=== PATIENT | female | born 1985 | race Caucasian/White ===

== ENCOUNTER 2022-01-17 12:25 | Outpatient (CLI) | payer BC, SELFPAY ==
[2022-01-17 13:00] LABS: Basophils Percent Auto 0.6 % (0.2-1.2); Eosinophils Absolute Auto 0.2 K/mm3 (0-0.3); Eosinophils Percent Auto 3.3 % (0-4.4); Hematocrit 39.7 % (37.0-47.0); Hemoglobin 13.1 g/dL (12.0-15.0); Immature Granulocyte Absolute 0.02 K/mm3 (0.00-0.031); Immature Granulocyte Percent A 0.3 % (0-0.5); Lymphocytes Absolute Auto 1.26 K/mm3 (0.9-3.2); Lymphocytes Percent Auto 18.1 % (18.3-44.2); Mean Corpuscular Hemoglobin 30.1 pg (26-34); Mean Corpuscular Volume 91.3 fl (80-100); Mean Platelet Volume 10.1 fl (7.4-10.4); Monocytes Absolute Auto 0.5 K/mm3 (0.1-0.6); Monocytes Percent Auto 7.6 % (2.6-8.5); Neutrophils Absolute Auto 4.9 K/mm3 (1.3-6.7); Neutrophils Percent Auto 70.1 % (45.5-73.1); Platelet Count Result 207 k/mm3 (150-375); Red Blood Count 4.35 M/mm3 (4.2-5.4); Red Cell Distribution Width 13.1 % (11.5-14.5)
[2022-01-17 13:32] LABS: Vitamin D 25 Hydroxy 23.8 ng/mL
[2022-01-17 13:46] LABS: Hepatitis B Surface Antigen Negative (Negative); Rubella IgG Antibody 19.6 IU/ML
[2022-01-17 13:48] LABS: HIV 1/2 Ab P24 Ag Result Negative (Negative)
[2022-01-17 14:02] LABS: Hepatitis C Virus Antibody Negative (Negative)
[2022-01-20 18:01] LABS: Rapid Plasma Reagin Non-Reactive (NonReactive)
[2022-01-21 11:42] LABS: Hematocrit 40.2 % (35.0-45.0); Hemoglobin 12.8 g/dL (11.7-15.5); MCV 94.1 fL (80.0-100.0); RDW 13.3 % (11.0-15.0); Red Blood Cell Count 4.27 Mill/uL (3.80-5.10)
[2022-01-28 17:12] LABS: CF Result NEGATIVE (NEGATIVE)
== END 2022-01-17 12:26 | disposition home or self-care (01) ==
LOC: ANHLAB 12:27
PROVIDERS: Visit Provider Student in an Organized Health Care Education/Training Program
DX: Z34.90 Encounter for supervision of normal pregnancy, unspecified, unspecified trimester (principal); Z3A.00 Weeks of gestation of pregnancy not specified
CPT/HCPCS: 36415; 81220; 81243; 82306; 83021; 84443; 85025; 86592; 86703; 86762; 86787; 86803; 86850; 86900; 86901; 87086; 87340; G0432

== ENCOUNTER 2022-04-11 11:19 | Outpatient (CLI) | payer BC, SELFPAY ==
[2022-04-11 12:32] LABS: Basophils Percent Auto 0.3 % (0.2-1.2); Eosinophils Absolute Auto 0.1 K/mm3 (0-0.3); Eosinophils Percent Auto 1.2 % (0-4.4); Hematocrit 35.6 % (37.0-47.0); Hemoglobin 11.7 g/dL (12.0-15.0); Immature Granulocyte Absolute 0.04 K/mm3 (0.00-0.031); Immature Granulocyte Percent A 0.5 % (0-0.5); Lymphocytes Absolute Auto 1.47 K/mm3 (0.9-3.2); Lymphocytes Percent Auto 16.6 % (18.3-44.2); Mean Corpuscular HGB Conc 32.9 g/dl (32-36); Mean Corpuscular Hemoglobin 29.9 pg (26-34); Mean Platelet Volume 10.3 fl (7.4-10.4); Monocytes Absolute Auto 0.5 K/mm3 (0.1-0.6); Monocytes Percent Auto 5.7 % (2.6-8.5); Neutrophils Absolute Auto 6.7 K/mm3 (1.3-6.7); Neutrophils Percent Auto 75.7 % (45.5-73.1); Platelet Count Result 183 k/mm3 (150-375); Red Blood Count 3.91 M/mm3 (4.2-5.4); Red Cell Distribution Width 14.5 % (11.5-14.5); White Blood Count 8.9 K/mm3 (4.5-10.0)
[2022-04-11 13:00] LABS: Glucose 1 Hour PP 50gm Dose 104 mg/dL
== END 2022-04-11 11:20 | disposition home or self-care (01) ==
LOC: ANHLAB 11:20
PROVIDERS: Visit Provider Student in an Organized Health Care Education/Training Program
DX: Z34.02 Encounter for supervision of normal first pregnancy, second trimester (principal); Z3A.00 Weeks of gestation of pregnancy not specified
CPT/HCPCS: 36415; 82947; 85025

== ENCOUNTER 2022-06-05 11:39 | Outpatient (CLI) | payer BC, SELFPAY ==
[2022-06-05 12:54] LABS: Basophils Percent Auto 0.3 % (0.2-1.2); Eosinophils Absolute Auto 0.1 K/mm3 (0-0.3); Eosinophils Percent Auto 1.1 % (0-4.4); Hematocrit 36.3 % (37.0-47.0); Hemoglobin 11.6 g/dL (12.0-15.0); Immature Granulocyte Absolute 0.03 K/mm3 (0.00-0.031); Immature Granulocyte Percent A 0.4 % (0-0.5); Lymphocytes Absolute Auto 1.14 K/mm3 (0.9-3.2); Lymphocytes Percent Auto 14.5 % (18.3-44.2); Mean Corpuscular Hemoglobin 28.6 pg (26-34); Mean Corpuscular Volume 89.4 fl (80-100); Mean Platelet Volume 10.8 fl (7.4-10.4); Monocytes Absolute Auto 0.5 K/mm3 (0.1-0.6); Neutrophils Absolute Auto 6.1 K/mm3 (1.3-6.7); Neutrophils Percent Auto 77.7 % (45.5-73.1); Platelet Count Result 171 k/mm3 (150-375); Red Blood Count 4.06 M/mm3 (4.2-5.4); Red Cell Distribution Width 14.6 % (11.5-14.5); White Blood Count 7.9 K/mm3 (4.5-10.0)
[2022-06-05 13:46] LABS: HIV 1/2 Ab P24 Ag Result Negative (Negative)
[2022-06-05 13:58] LABS: Rapid Plasma Reagin Non-Reactive (NonReactive)
== END 2022-06-05 11:40 | disposition home or self-care (01) ==
LOC: ANHLAB 11:41
PROVIDERS: Visit Provider Student in an Organized Health Care Education/Training Program
DX: Z34.03 Encounter for supervision of normal first pregnancy, third trimester (principal); Z3A.00 Weeks of gestation of pregnancy not specified
CPT/HCPCS: 36415; 85025; 86592; 86703; G0432

== ENCOUNTER 2022-07-25 10:27 | Outpatient (RCR) | payer BC, SELFPAY ==
[2022-05-08 13:06] VITALS: BP 115/71; PULSE 98
[2022-06-20 16:18] VITALS: BP 125/72; PULSE 95
[2022-07-08 08:08] VITALS: BP 123/77; PULSE 88
--- NOTE | ~2022-07-25 | US_ITS ---
EXAMINATION: US OB limited DATE: 07/25/2022 12:09 INDICATION: Amniotic fluid index assessment, term TECHNIQUE: Real-time ultrasound of the pelvis was performed. The interpreting radiologist was not pre sent for the study. COMPARISON: None. FINDINGS: There is a single living fetus in vertex presentation. The placenta is anterior. card iac activity and movement are noted. heart rate is 151 beats per minute (bpm). The amniot ic fluid index is 10.4 cm which is normal (normal range: 7.1 cm to 21.4 cm). IMPRESSION: 1. Single living fetus in vertex presentation. 2. Normal amniotic fluid index. Reviewed, dictated and finalized at location A.
--- NOTE | 2022-07-25 12:24 | PC.NURSE ---
called Ken Childs CNM and reported BP, Reactive NST, LAb result. discharge order received
[2022-07-25 12:27] VITALS: BP 136/79
== END 2022-08-06 23:59 | disposition home or self-care (01) ==
LOC: ANHOBOP 10:27
PROVIDERS: Visit Provider Student in an Organized Health Care Education/Training Program
DX: O36.8330 Maternal care for abnormalities of the fetal heart rate or rhythm, third trimester, not applicable or unspecified (principal); Z3A.28 28 weeks gestation of pregnancy; Z3A.40 40 weeks gestation of pregnancy
CPT/HCPCS: 59025; 76815

== ENCOUNTER 2022-07-29 18:52 | Inpatient (IN) | payer BC, SELFPAY ==
[2022-07-29] VITALS (10 sets, daily range): BP systolic 116–131; BP diastolic 54–76; PULSE 88–103; TEMP 36.2; BMI 46.6
--- NOTE | 2022-07-29 20:23 | LDADM ---
This patient, Karmen Schmidt, was admitted to Labor/Delivery/Recovery 108 on 07/29/22 at 18:52. Plans for labor, pain management and were discussed with patient. Patient/family oriented to hospital policies and general routines including ID bracelet, bed and alarms, visiting hours, pain management, procedures, bathroom and other care routines, personal items, smoking policy, room service/diet and guest tray routines, security routines, and visiting hours. Patient/Family are encouraged to report perceived risks to care and to ask questions if they do not understand what they are told or what they should do. See OBIX for further documentation.
[2022-07-29] MEDS: DINOPROSTONE 10 MG VAG INSERT VAGINAL (20:56)
[2022-07-29 21:05] LABS: Basophils Percent Auto 0.3 % (0.2-1.2); Eosinophils Absolute Auto 0.1 K/mm3 (0-0.3); Eosinophils Percent Auto 0.8 % (0-4.4); Hematocrit 37.6 % (37.0-47.0); Hemoglobin 12.3 g/dL (12.0-15.0); Immature Granulocyte Absolute 0.03 K/mm3 (0.00-0.031); Immature Granulocyte Percent A 0.5 % (0-0.5); Lymphocytes Absolute Auto 1.09 K/mm3 (0.9-3.2); Lymphocytes Percent Auto 16.4 % (18.3-44.2); Mean Corpuscular HGB Conc 32.7 g/dl (32-36); Mean Corpuscular Hemoglobin 28.9 pg (26-34); Mean Corpuscular Volume 88.3 fl (80-100); Mean Platelet Volume 10.5 fl (7.4-10.4); Monocytes Absolute Auto 0.5 K/mm3 (0.1-0.6); Monocytes Percent Auto 7.7 % (2.6-8.5); Neutrophils Percent Auto 74.3 % (45.5-73.1); Platelet Count Result 176 k/mm3 (150-375); Red Blood Count 4.26 M/mm3 (4.2-5.4); Red Cell Distribution Width 15.3 % (11.5-14.5); White Blood Count 6.7 K/mm3 (4.5-10.0)
[2022-07-30] VITALS (100 sets, daily range): BP systolic 96–136; BP diastolic 54–92; PULSE 77–116; TEMP 36.1–36.7; O2SAT 88–100
--- NOTE | 2022-07-30 06:28 | WPDANESEPP ---
Anes - Eval Pre Procedure Procedure: labor epidural Date/Time: 07/30/22 06:28 Surgeon: daniel Preop Diagnosis: pain during labor Pre Op Diagnosis: IOL Patient Data Age: 37 Gender: F Height: 1.65 m Weight: 127.25 kg Last Vital Signs Temp 36.3 C L 07/30/22 03:09 Pulse 96 07/30/22 04:01 BP 126/78 07/30/22 04:01 O2 Del Method Room Air 07/29/22 20:22 Allergies Allergy/AdvReac Type Severity Reaction Status Date / Time No Known Allergies Allergy Verified 07/18/22 15:25 Home Medications Medication Instructions Recorded Confirmed Type prenat.vits,christie,[id number] 1 tablet PO DAILY 01/03/22 History aspirin 81 mg tablet 81 mg PO DAILY 06/24/22 06/24/22 History cholecalciferol (vitamin D3) 50 2,000 unit 06/24/22 History mcg (2,000 unit) tablet (Vitamin D3) Laboratory Tests 07/29/22 07/29/22 07/29/22 20:46 20:46 20:46 WBC 6.7 K/mm3 K/mm3 (4.5-10.0) RBC 4.26 M/mm3 M/mm3 (4.2-5.4) Hgb 12.3 g/dL g/dL (12.0-15.0) Hct 37.6 % % (37.0-47.0) MCV 88.3 fl fl (80-100) MCH 28.9 pg pg (26-34) MCHC 32.7 g/dl g/dl (32-36) RDW 15.3 % H % (11.5-14.5) Plt Count 176 k/mm3 k/mm3 (150-375) MPV 10.5 fl H fl (7.4-10.4) Immature Gran % (Auto) 0.5 % % (0-0.5) Neut % (Auto) 74.3 % H % (45.5-73.1) Lymph % (Auto) 16.4 % L % (18.3-44.2) Otero % (Auto) 7.7 % % (2.6-8.5) Eos % (Auto) 0.8 % % (0-4.4) Baso % (Auto) 0.3 % % (0.2-1.2) Lymph # (Auto) 1.09 K/mm3 K/mm3 (0.9-3.2) Otero # (Auto) 0.5 K/mm3 K/mm3 (0.1-0.6) Eos # (Auto) 0.1 K/mm3 K/mm3 (0-0.3) Baso # (Auto) 0.0 K/mm3 K/mm3 (0.0-0.1) Abs Immat Gran (auto) 0.03 K/mm3 K/mm3 (0.00-0.031) Absolute Neuts (auto) 5.0 K/mm3 K/mm3 (1.3-6.7) Absolute Nucleated RBC 0.0 K/mm3 K/mm3 (0.0-0.012) Nucleated RBC % 0.0 % % (0.0-0.2) RPR Pending Blood Type A Positive Antibody Screen Negative Patient hx anesthesia problems: none Family hx anesthesia problems: none Results Review: All pre-operative results and documents have been reviewed as part of the pre-operative evaluation. [facility] Past Medical History Medical History (Updated 07/30/22 @ 06:29 by Jaylene Pelletier CRNA) IUP (intrauterine ), incidental Morbid obesity with BMI of 45.0-49.9, adult Family History Family History Grandparent Cancer Grandparent Diabetes mellitus Heart disease Hypertension Grandparent Breast cancer Social History Social History Smoking status: Never smoker Second hand tobacco smoke exposure: No Alcohol intake: unknown Substance use: never Gender identity (if verbalized by the patient): Female Spiritual care concerns: No Exam Day of Procedure 07/30/22 06:28
[2022-07-30] MEDS: miSOPROStol 50 MCG TABLET PO (10:07)
[2022-07-30] MEDS: AMPICILLIN 1 GM/NS 50 ML 1 GM/50 ML BAG IVPB ×3 (12:08→20:53)
[2022-07-30] MEDS: LACTATED RINGERS 1,000 ML 125 ML IV CONT ×2 (15:03→19:11)
[2022-07-30] MEDS: OXYTOCIN 30 UNITS/NS 500 ML 30 UNITS/500 ML BAG 6 UNITS IV CONT (15:03)
[2022-07-30 15:21] LABS: HIV 1/2 Ab P24 Ag Result Negative (Negative)
--- NOTE | 2022-07-30 15:30 | WPDHPUPDATE1 ---
History and Physical Update Update Date/Time: 07/31/22 02:27 History and Physical has been reviewed, including an updated exam of the patient. There are NO changes in the patient's condition. Risks, benefits, and alternatives have been discussed and questions answered. Patient agrees to proceed with procedure.
[2022-07-30 15:36] LABS: Rapid Plasma Reagin Non-Reactive (NonReactive)
--- NOTE | 2022-07-30 15:50 | PM.IMHP ---
H&P: HPI History of Present Illness Date/Time: 07/30/22 15:50 Chief Complaint: Induction of labor Narrative: Patient is a LMP 10/18/21 currently 40w5d gestation with MAXIMO 07/25/22 who presented to L&D on the evening of 07/29/22 at 40w4d gestation for scheduled induction of labor. Patient is dated by LMP c/w outside [place]. In general, patient doing well. Reports occasional contractions. Denies any vaginal bleeding or leakage of fluid. Reports good movement. Review of Systems Review of Systems: All systems reviewed & are unremarkable except as noted in HPI and below Constitutional: Constitutional: Reports as per HPI and Reports no additional constitutional complaints Eyes: Eyes: Reports as per HPI and Reports no additional eye complaints ENT: Reports system reviewed and no additional complaints, except as documented and Reports as per HPI Cardiovascular: Cardiovascular: Reports as per HPI and Reports no additional cardiovascular complaints Respiratory: Respiratory: Reports as per HPI and Reports no additional respiratory complaints Gastrointestinal: Gastrointestinal: Reports as per HPI and Reports no additional gastrointestinal complaints Genitourinary: Genitourinary: Reports no additional female genitourinary complaints and Reports as per HPI Musculoskeletal: Musculoskeletal: Reports no additional musculoskeletal complaints and Reports as per HPI Integumentary/Breasts: Skin/Breast: Reports system reviewed and no additional complaints, except as docu and Reports as per HPI Neurologic: Reports system reviewed and no additional complaints, except as documented and Reports as per HPI Psychiatric: Psychiatric: Reports no additional psychiatric complaints and Reports as per HPI Endocrine: Endocrine: Reports no additional endocrine complaints and Reports as per HPI Hematologic/Lymphatic: Hematologic/Lymphatic: Reports no additional hematologic/lymphatic complaints and Reports as per HPI Allergic/Immunologic: Allergic/Immunologic: Reports no additional allergic/immunologic complaints and Reports as per HPI PMFSH Past Medical History Medical History IUP (intrauterine ), incidental Morbid obesity with BMI of 45.0-49.9, adult Family History Family History Grandparent Cancer Grandparent Diabetes mellitus Heart disease Hypertension Grandparent Breast cancer Social History Social History Smoking status: Never smoker Second hand tobacco smoke exposure: No Alcohol intake: unknown Substance use: never Gender identity (if verbalized by the patient): Female Spiritual care concerns: No Meds Home Medications and Allergies Home Medications Medication Instructions Recorded Confirmed Type prenat.vits,christie,kzo-bpgb-mpizg 1 tablet PO DAILY 01/03/22 History aspirin 81 mg tablet 81 mg PO DAILY 06/24/22 06/24/22 History cholecalciferol (vitamin D3) 50 2,000 unit 06/24/22 History mcg (2,000 unit) tablet (Vitamin D3) Allergies Allergy/AdvReac Type Severity Reaction Status Date / Time No Known Allergies Allergy Verified 07/18/22 15:25 Vital Signs Vital Signs - 24 hr 07/29/22 20:22 07/29/22 20:55 07/29/22 20:56 Temperature 36.2 C L Pulse Rate 97 Blood Pressure 131/75 Oxygen Delivery Room Air 07/29/22 21:00 07/29/22 21:15 07/29/22 21:31 Temperature Pulse Rate 103 H 92 92 Blood Pressure 120/76 124/62 123/54 L Oxygen Delivery 07/29/22 21:45 07/29/22 22:00 07/29/22 22:15 Temperature Pulse Rate 96 91 90 Blood Pressure 124/68 119/65 116/73 Oxygen Delivery 07/29/22 22:31 07/29/22 22:46 07/30/22 03:09 Temperature 36.3 C L Pulse Rate 92 88 Blood Pressure 125/68 118/64 Oxygen Delivery 07/30/22 03:12 07/30/22 03:31 07/30/22 04:01 Temperature Pulse Rate 83 85 96 Bl
--- NOTE | 2022-07-30 18:47 | P.PNOB_ITS ---
Pain Control Date/time seen: 07/30/22 18:47 Patient doing well. Reports feeling contractions. SVE /-2. AROM performed, clear fluid noted. EFM category 1. [place] shows contractions q2 mins. Continue pitocin.
[2022-07-30] MEDS: SODIUM CHLORIDE 0.9% IV 300 ML 600 ML I-UTERINE (22:09)
[2022-07-31] VITALS (52 sets, daily range): BP systolic 95–133; BP diastolic 46–95; PULSE 84–186; RESP 18; TEMP 36.7–37.2; O2SAT 81–100
[2022-07-31] MEDS: AMPICILLIN 1 GM/NS 50 ML 1 GM/50 ML BAG IVPB (00:10)
[2022-07-31] MEDS: LACTATED RINGERS 1,000 ML 125 ML IV CONT (00:10)
[2022-07-31] MEDS: OXYTOCIN 30 UNITS/NS 500 ML 30 UNITS/500 ML BAG 125 UNITS IV CONT (02:27)
--- NOTE | 2022-07-31 02:28 | PM.OBPRVD ---
OB - Delivery Note Procedure Delivery date: 07/31/22 Procedure: Patient is a 37-year-old now who presented to labor and delivery on the evening of 07/29/2022 at 40 weeks 4 days gestation for scheduled induction of labor. Initial cervical exam was closed. Induction of labor was started with Cervidil. Cervidil was placed and remained in place for approximately 12 hours. After removal, cervical exam was approximately fingertip dilated. Patient received Cytotec x1 dose. Patient progressed to approximately 2 cm dilated. Pitocin was then started for labor augmentation and continuously titrated throughout the remainder of the morning and afternoon. At 6:43 p.m., artificial rupture of membranes was performed. Clear amniotic fluid was noted. Patient became uncomfortable and requested an epidural for pain management which was placed without difficulty. Patient continued to make progressive cervical change. Late and variable decelerations were noted on EFM. An IUPC was placed for enhanced monitoring and an amnioinfusion was also started. tracing improved. Patient continued to progress and was found to be fully dilated at 12:52 a.m. Patient was encouraged to push and found to be pushing well. She was prepped and draped for delivery. At 1:41 a.m., patient delivered head atraumatically and without difficulty in [place] presentation. A nuchal cord x1 was noted and reduced. With subsequent push, the 's neck, shoulders, and rest of body delivered without difficulty. Terminal meconium as well as a large amount of meconium-stained fluid was noted immediately following delivery of infant. was a bit floppy and placed on maternal abdomen where care was assumed by awaiting nursing staff. 's nose and mouth were suctioned with bulb suction. Delayed cord clamping was performed for approximately 30 seconds. Cord was clamped and cut. A segment of cord was collected for cord gases. Cord blood was collected. The placenta was delivered spontaneously and intact. Uterine fundus was noted to be firm with massage. On inspection, a second-degree perineal laceration was noted. This laceration was repaired with 2-0 Vicryl in the usual fashion. Excellent hemostasis was noted. Estimated blood loss for entire delivery was 250 cc. The infant was live born male infant, Apgars 8 and 9, weighing 8 lbs. 8 oz. Both mother and baby doing well at end of delivery. Events: Elective Induction of Labor Intrapartal Events: Decelerations Induction method: Per Cervidil Protocol Delivery augmentation: Rupture of Membranes and Pitocin Delivery monitor: External FHT, External Uterine and Internal Uterine Route of delivery: Laceration Description: Perineal - 2nd Degree Delivery repair: vicryl (2-0) Specimen: Yes (placenta and cord, cord blood, and cord gases) Quantitative Blood Loss (ml): 250 Anesthesia type: Epidural Disposition: Floor Complications: No immediate complications [place] Baby Date of : 07/31/22 Time of : 01:41 Weeks of gestation at delivery: 40 (40.6) gender: Male Weight (pounds): 8 Weight (ounces): 8 presentation: vertex position: Left Occiput Anterior Placenta delivery description: Spontaneous Cord Vessel Description: 3 Vessels, Nuchal Cord (x1) and Delayed Cord Clamping (x30s) score one minute: 8 score five minutes: 9 AMG Delivery Billing Delivery Delivery: Delivery Charge
[2022-07-31] MEDS: IBUPROFEN 600 MG TABLET PO ×3 (03:18→19:01)
[2022-07-31] MEDS: HYDROcodone/acetaminophen (*CRX) 10-325 MG TABLET 1 TAB PO ×4 (03:55→19:01)
[2022-07-31] MEDS: WITCH HAZEL 40 PADS 1 PAD TOPICAL (05:04)
[2022-07-31] MEDS: BENZOCAINE 20% AER SPR (*SP) 56 GM CAN 1 SPRAY TOPICAL (05:05)
[2022-07-31] MEDS: DOCUSATE SODIUM 100 MG CAPSULE PO ×2 (09:57→17:58)
[2022-07-31] MEDS: MULTIVIT/MIN/PREN/FOL AC/IRON TABLET 1 TAB PO (09:57)
--- NOTE | 2022-07-31 10:56 | PC.NURSE ---
[id number] Introductions were made, then consulted with patient to assess needs related to . Mother led the conversation with her?plans to feed?her infant and the?experience so far. Resources provided for inpatient and outpatient services using a resource guide and mom/baby guide. Mother voiced understanding of information and requests assistance. Consulted with patient to assess needs related to . Mother works well with her and has infant latched to the left breast using cross cradle positioning and states there's no pain. Reviewed working with , breast, nipples and how to protect the nipples with an optimal deep latch, good positioning, and good hand washing. Encouraged understanding the benefits of skin to skin, responding to feeding cues, frequencies of feeding 8-12 times in 24 hours (approximately 2-3 hours), duration of feedings, hand expression, milk production, intake/output feeding sheet and signs of adequate intake encouraging swallowing at the breast. detached and was placed skin to skin on mother's chest. demonstrated feeding cues and was offered the right breast in football position. Reviewed positioning and alignment, supporting breast, off-centered (asymmetrical latch) and leading with the chin with big open wide gape. Several attempts were made to latch infant to the breast. Mother's nipple is large for infants mouth, firm and regresses somewhat, however, it is everted initially. After several attempts infant opens wider with each attempt and latches with a big, wide, open mouth. Mother denies any discomfort, rocking motion is visualized along with hearing swallowing sounds and the infants jaw dropping lower with each sound. latched optimally to the right breast in football position. Education given to mother of how to visualize suck/swallow ratios and listening for drinking at the breast. was able to maintain latch without discomfort to mother. Mother also plans to syringe feed her the 1 ml of colostrum that was pumped less than 4 hours ago. Nipple care reviewed with optimal latch and good positioning. Discussed with mother what to look for after breastfeeds as the nipple is to not be misshaped. Resources used to facilitate learning were used from the mom and baby guide. Reviewed pumping care, usage, there's to be no pain, milk production, caution for oversupply, prevention and treatment of engorgement. Mother voiced understanding of the education shared, calling for assistance if the infant does not latch or if there is discomfort with . Reported to the primary RN.
[2022-08-01] VITALS: BP 139/85; PULSE 93; RESP 18; TEMP 36.6
[2022-08-01 05:32] LABS: Hematocrit 30.8 % (37.0-47.0)
[2022-08-01 08:00] VITALS: PULSE 103; RESP 16; O2SAT 100
[2022-08-01] MEDS: IBUPROFEN 600 MG TABLET PO ×2 (08:15→19:38)
[2022-08-01] MEDS: DOCUSATE SODIUM 100 MG CAPSULE PO ×2 (08:16→17:34)
[2022-08-01] MEDS: MULTIVIT/MIN/PREN/FOL AC/IRON TABLET 1 TAB PO (08:16)
[2022-08-01 08:20] VITALS: BP 140/88; PULSE 103; RESP 16; TEMP 37; O2SAT 100
--- NOTE | 2022-08-01 08:59 | WPDANLDPN2 ---
Anes-Prog Note L&D Date/Time: 08/01/22 08:59 Comfortable throughout: labor and delivery Neuraxial method: epidural Epidural/Spinal procedure site: clean & non-tender Neuro status: Neuro function grossly intact. Cardiovascular status: normal Respiratory status: normal Airway patency: baseline Mental status: baseline Post-Op hydration status: normal Vital Signs: Last Vital Signs Temp 36.6 C 08/01/22 00:00 Pulse 93 08/01/22 00:00 Resp 18 08/01/22 00:00 BP 139/85 08/01/22 00:00 Pulse Ox 99 07/31/22 16:09 O2 Del Method Room Air 08/01/22 00:00 Pain score (VAS): 1/10 I/O: Intake & Output 07/31/22 08/01/22 08/01/22 23:59 07:59 15:59 Intake Total 240 Balance 240 Post-procedural complaints: none Patient feedback: Patient satisfied with anesthetic care.
--- NOTE | 2022-08-01 12:07 | PM.OBPNVD ---
OB - PN: Subj Subjective Date/time seen: 08/01/22 12:07 Patient doing well. Mild cramping and generalized soreness improved with medication. Minimal lochia. Ambulating without difficulty. Voiding well. OB - PN: Obj Data Labs CBC & Chem 7: 08/01/22 05:17 Labs: Laboratory Results - last 24 hr 08/01/22 05:17 Hgb 10.0 L Hct 30.8 L OB - PN A/P Assessment and Plan (1) Normal spontaneous vaginal delivery: Code(s): O80 - Encounter for full-term uncomplicated delivery Status: Acute Assessment and Plan: PPD#1 doing well continue routine care few mild elevated BP measurements noted, per RN, at least 1-2 measurements were while pt in pain, pt currently asymptomatic will obtain labs to ensure WNL anticipate dc home tomorrow Time Spent With Patient Time: Total time spent is greater than 50% in coordination of care (as documented) at patient's floor/unit and/or counseling patient: Review of Systems Review of Systems: All systems reviewed & are unremarkable except as noted in HPI and below Exam Const: General: cooperative, comfortable and no acute distress Nutritional Appearance: obese GI: Inspection: non-distended GI Palp: Yes Soft to palpation and No Tenderness to palpation present (GI) Other: fundus firm below umbilicus Extrem: Right lower extremity: no edema Left lower extremity: no edema Other: no calf tenderness
[2022-08-01] MEDS: ACETAMINOPHEN 325 MG TABLET 650 MG PO (13:10)
[2022-08-01 13:17] LABS: Basophils Absolute Auto 0.1 K/mm3 (0.0-0.1); Basophils Percent Auto 0.6 % (0.2-1.2); Eosinophils Absolute Auto 0.1 K/mm3 (0-0.3); Eosinophils Percent Auto 1.6 % (0-4.4); Hematocrit 30.5 % (37.0-47.0); Hemoglobin 10.1 g/dL (12.0-15.0); Immature Granulocyte Absolute 0.06 K/mm3 (0.00-0.031); Immature Granulocyte Percent A 0.7 % (0-0.5); Lymphocytes Percent Auto 15.6 % (18.3-44.2); Mean Corpuscular HGB Conc 33.1 g/dl (32-36); Mean Corpuscular Hemoglobin 29.5 pg (26-34); Mean Corpuscular Volume 89.2 fl (80-100); Mean Platelet Volume 10.7 fl (7.4-10.4); Monocytes Absolute Auto 0.3 K/mm3 (0.1-0.6); Monocytes Percent Auto 3.8 % (2.6-8.5); Neutrophils Percent Auto 77.7 % (45.5-73.1); Platelet Count Result 151 k/mm3 (150-375); Red Blood Count 3.42 M/mm3 (4.2-5.4); Red Cell Distribution Width 15.2 % (11.5-14.5)
[2022-08-01 13:26] LABS: Uric Acid 4.5 mg/dL (2.5-7.5)
[2022-08-01 13:28] LABS: Alanine Aminotransferase 23 U/L (6-35); Albumin Level 3.4 g/dL (3.5-5.1); Alkaline Phosphatase 102 U/L (38-126); Anion Gap 11 mmol/L (8-16); Aspartate Amino Transferase 24 U/L (14-36); Bilirubin,Total 0.2 mg/dL (0.2-1.3); Blood Urea Nitrogen 8 mg/dL (7-17); Calcium 8.8 mg/dL (8.4-10.2); Carbon Dioxide 22 mmol/L (22-30); Chloride 105 mmol/L (98-107); Estimated CRCL calculation 147 ml/min; Estimated Glomerular Filt Rate > 60; Glucose 110 mg/dL (65-110); Potassium 3.8 mmol/L (3.4-5.0); Sodium 138 mmol/L (137-145)
[2022-08-01 20:35] VITALS: BP 153/95; PULSE 104; RESP 16; TEMP 36.9; O2SAT 97
[2022-08-02 07:40] VITALS: BP 143/94; PULSE 104; RESP 16; TEMP 37.1
--- NOTE | 2022-08-02 09:21 | PM.OBPNVD ---
OB - PN: Subj Subjective Date/time seen: 08/02/22 09:21 Interval history: She denies headache, scotomata or RUQ pain. Pain controlled. Lochia decreasing. Patient comments: tolerating diet baby status: nursing well feeding status: exclusively breast feeding OB - PN: Obj Data Labs CBC & Chem 7: 08/01/22 12:54 08/01/22 13:03 Labs: Laboratory Results - last 24 hr 08/01/22 08/01/22 08/01/22 12:54 12:54 13:03 WBC 9.0 RBC 3.42 L Hgb 10.1 L Hct 30.5 L MCV 89.2 MCH 29.5 MCHC 33.1 RDW 15.2 H Plt Count 151 MPV 10.7 H Immature Gran % (Auto) 0.7 H Neut % (Auto) 77.7 H Lymph % (Auto) 15.6 L [place] % (Auto) 3.8 Eos % (Auto) 1.6 Baso % (Auto) 0.6 Lymph # (Auto) 1.40 [place] # (Auto) 0.3 Eos # (Auto) 0.1 Baso # (Auto) 0.1 Abs Immat Gran (auto) 0.06 H Absolute Neuts (auto) 7.0 H Absolute Nucleated RBC 0.0 Nucleated RBC % 0.0 Sodium 138 Potassium 3.8 Chloride 105 Carbon Dioxide 22 Anion Gap 11 BUN 8 Creatinine 0.60 L Estim Creat Clear Calc 147 Estimated GFR > 60 Glucose 110 Uric Acid 4.5 Calcium 8.8 Total Bilirubin 0.2 AST 24 ALT 23 Alkaline Phosphatase 102 Total Protein 6.0 L Albumin 3.4 L OB - PN A/P Assessment and Plan (1) Normal spontaneous vaginal delivery: Code(s): O80 - Encounter for full-term uncomplicated delivery Status: Acute (2) hypertension: Code(s): O16.5 - Unspecified maternal hypertension, complicating the puerperium Status: Acute Assessment and Plan: Persistent, no signs or symptoms of pre-eclampsia. Labs reviewed from yesterday normal. Recommend antihypertensive. Discussed side effects. Will monitor blood pressures after initiation of medication and if stable and baby allowed discharge then will allow discharge. Hypertension precautions discussed. Time Spent With Patient Time: Total time spent is greater than 50% in coordination of care (as documented) at patient's floor/unit and/or counseling patient: Review of Systems Review of Systems: All systems reviewed & are unremarkable except as noted in HPI and below Constitutional: Constitutional: Reports no additional constitutional complaints Cardiovascular: Cardiovascular: Denies dyspnea Respiratory: Respiratory: Denies dyspnea Gastrointestinal: Gastrointestinal: Reports no additional gastrointestinal complaints and Denies abdominal pain Genitourinary: Genitourinary: Reports no additional female genitourinary complaints Exam Psych: Affect: normal affect Other: Abd: fundus firm below umbilicus, nontender Perineum: healing Ext: nontender 1+ edema bilat DTR 2+ ULE bilat
--- NOTE | 2022-08-02 09:39 | PM.OBDSVD ---
DS: Admitting Diagnosis Discharge Date 08/03/22 Admitting Diagnosis Induction of labor OB - DS: Summary OB Procedures : Ultrasound OB Procedures Intrapartum: Spontaneous Vag Delivery OB Procedures: : None Peripartum Data Infant Delivery Method: Natural Vaginal complications: none Status at Discharge Functional status at discharge: independent ambulation Time Spent with Patient Time attestation: Total time spent providing and/or coordinating discharge services: Exam Const: General: cooperative Orientation/consciousness: oriented to person, oriented to place and oriented to time HENMT: General nose exam: Normal external nose present Eyes: General: appearance normal, both eyes and all related structures Resp: Effort & Inspection: normal respiratory effort GI: Inspection: normal to inspection Skin: General skin exam: normal color Neuro: General: oriented to person, oriented to place and oriented to time Extrem: General: normal to inspection and no calf tenderness Psych: Appearance: grossly normal Mental Status: mental status grossly normal DS: Data Data Completed and Pending Pending studies at discharge: Pending at discharge 07/31/22 01:46 Surgical [PTH] Routine Labs on day of discharge: Labs from last 24 hours 08/01/22 08/01/22 08/01/22 13:03 12:54 12:54 WBC 9.0 RBC 3.42 L Hgb 10.1 L Hct 30.5 L MCV 89.2 MCH 29.5 MCHC 33.1 RDW 15.2 H Plt Count 151 MPV 10.7 H Immature Gran % (Auto) 0.7 H Neut % (Auto) 77.7 H Lymph % (Auto) 15.6 L [place] % (Auto) 3.8 Eos % (Auto) 1.6 Baso % (Auto) 0.6 Lymph # (Auto) 1.40 [place] # (Auto) 0.3 Eos # (Auto) 0.1 Baso # (Auto) 0.1 Abs Immat Gran (auto) 0.06 H Absolute Neuts (auto) 7.0 H Absolute Nucleated RBC 0.0 Nucleated RBC % 0.0 Sodium 138 Potassium 3.8 Chloride 105 Carbon Dioxide 22 Anion Gap 11 BUN 8 Creatinine 0.60 L Estim Creat Clear Calc 147 Estimated GFR > 60 Glucose 110 Uric Acid 4.5 Calcium 8.8 Total Bilirubin 0.2 AST 24 ALT 23 Alkaline Phosphatase 102 Total Protein 6.0 L Albumin 3.4 L Discharge Plan Discharge Attending physician on discharge: Jenifer Hunt Consulting providers: Gely Adame ; Jaylene Pelletier ; Gaby Sher Discharging Clinician: Manohar Meléndez Anticipated Discharge Date/Time: 08/03/22 10:15 Patient Disposition: Home, Self-Care Activity: may shower, no straining and pelvic rest Diet: low sodium Discharge Instructions: Pelvic rest for 4-6 weeks. May take over the counter Ibuprofen or Tylenol for pain. Call if saturating more than a pad an hour, leg redness, pain and swelling, temperature>100.4. No strenuous activity. Take blood pressures once a day morning or evening after resting for 20 minutes. Call if top number 160 or greater or lower number 110 or greater. Take blood pressure medication as prescribed. Call for severe headache not relieved with Tylenol, spots in vision or right upper quadrant pain. Education: Mom and Baby Guide Given to: Mother Follow-Up: Call your delivering provider's office for an appointment to be seen in: 1 Week Mom and baby should come to the [facility] for the follow-up appointment. Appointment Date/Time: August 04, 2022 at 12:30 pm What to expect at your follow-up visit: Call [phone] if you are unable to keep your appointment time. BREAST CARE: * Wear a snug supportive bra. * For engorgement discomfort: Breast Feeding: * Apply warm moist washcloths * Express milk as needed to relieve engorgement * Wear loose clothing Bottle Feeding: * May apply ice packs * For sore nipples: * Identify correct latch-on * Apply warm moist washcloths before and after nursing * Air dry nipples after nursing
[2022-08-02] MEDS: NIFEdipine 30 MG TAB.ER.24 PO (10:04)
[2022-08-02] MEDS: MULTIVIT/MIN/PREN/FOL AC/IRON TABLET 1 TAB PO (10:04)
[2022-08-02] MEDS: DOCUSATE SODIUM 100 MG CAPSULE PO ×2 (10:05→16:44)
--- NOTE | 2022-08-02 10:13 | WPDANESPN ---
Anes - Prog Note Post-Op Date/Time: 08/02/22 10:13 Cardiovascular status: normal Respiratory status: normal Airway patency: baseline Mental status: baseline Post-Op hydration status: normal Vital Signs: Last Vital Signs Temp 37.1 C 08/02/22 07:40 Pulse 104 H 08/02/22 07:40 Resp 16 08/02/22 07:40 BP 143/94 H 08/02/22 07:40 Pulse Ox 97 08/01/22 20:35 O2 Del Method Room Air 08/01/22 20:35 Pain Score (VAS): 0 Laboratory Tests 08/01/22 12:54 08/01/22 13:03 08/01/22 08/01/22 08/01/22 12:54 12:54 13:03 WBC 9.0 RBC 3.42 L Hgb 10.1 L Hct 30.5 L MCV 89.2 MCH 29.5 MCHC 33.1 RDW 15.2 H Plt Count 151 MPV 10.7 H Immature Gran % (Auto) 0.7 H Neut % (Auto) 77.7 H Lymph % (Auto) 15.6 L [place] % (Auto) 3.8 Eos % (Auto) 1.6 Baso % (Auto) 0.6 Lymph # (Auto) 1.40 [place] # (Auto) 0.3 Eos # (Auto) 0.1 Baso # (Auto) 0.1 Abs Immat Gran (auto) 0.06 H Absolute Neuts (auto) 7.0 H Absolute Nucleated RBC 0.0 Nucleated RBC % 0.0 Sodium 138 Potassium 3.8 Chloride 105 Carbon Dioxide 22 Anion Gap 11 BUN 8 Creatinine 0.60 L Estim Creat Clear Calc 147 Estimated GFR > 60 Glucose 110 Uric Acid 4.5 Calcium 8.8 Total Bilirubin 0.2 AST 24 ALT 23 Alkaline Phosphatase 102 Total Protein 6.0 L Albumin 3.4 L Post-procedural complaints: none Patient Feedback: Patient satisfied with anesthetic care.
[2022-08-02 11:23] VITALS: BP 146/82; PULSE 104
[2022-08-02] MEDS: IBUPROFEN 600 MG TABLET PO ×2 (12:02→18:59)
[2022-08-02] MEDS: WITCH HAZEL 40 PADS 1 PAD TOPICAL (12:02)
[2022-08-02 15:30] VITALS: BP 161/84
[2022-08-02] MEDS: ACETAMINOPHEN 325 MG TABLET 650 MG PO ×2 (16:43→22:54)
[2022-08-02 17:15] VITALS: BP 147/89; PULSE 101; RESP 18; TEMP 36.8; O2SAT 99
[2022-08-02 20:00] VITALS: BP 142/84; PULSE 98; RESP 16; TEMP 36.6; O2SAT 100
[2022-08-03] VITALS: BP 137/93
[2022-08-03] MEDS: IBUPROFEN 600 MG TABLET PO (04:40)
[2022-08-03 07:15] VITALS: BP 125/83; PULSE 91; RESP 16; TEMP 36.1; O2SAT 100
[2022-08-03] MEDS: ACETAMINOPHEN 325 MG TABLET 650 MG PO (07:24)
[2022-08-03] MEDS: MULTIVIT/MIN/PREN/FOL AC/IRON TABLET 1 TAB PO (07:24)
[2022-08-03] MEDS: DOCUSATE SODIUM 100 MG CAPSULE PO (07:24)
--- NOTE | 2022-08-03 10:14 | PM.OBPNVD ---
OB - PN: Subj Subjective Date/time seen: 08/03/22 10:14 Interval history: She denies headache, scotomata or RUQ pain. Pain controlled. Lochia decreasing. She states she feels better than yesterday. OB - PN: Obj Data Labs CBC & Chem 7: 08/01/22 12:54 08/01/22 13:03 OB - PN A/P Assessment and Plan (1) hypertension: Code(s): O16.5 - Unspecified maternal hypertension, complicating the puerperium Status: Acute Assessment and Plan: Improving on medication. No signs or symptoms of severe disease. Discharge home with hypertension and precautions. (2) Normal spontaneous vaginal delivery: Code(s): O80 - Encounter for full-term uncomplicated delivery Status: Acute Time Spent With Patient Time: Total time spent is greater than 50% in coordination of care (as documented) at patient's floor/unit and/or counseling patient:
[2022-08-03] MEDS: NIFEdipine 30 MG TAB.ER.24 PO (10:17)
[2022-08-04 13:45] VITALS: BP 152/91; PULSE 82; RESP 20; TEMP 36.9; O2SAT 99
--- NOTE | 2022-09-03 12:51 | PM.OBTRLD ---
OB - Triage/Final Diagnosis Visit Information Comments/Additional reasons for admission: I have assessed the risk for this patient, Karmen Schmidt, and determined that she would benefit from observation care. Evaluation Laboratory results: Laboratory Tests 07/29/22 07/29/22 07/29/22 20:46 20:46 20:46 WBC 6.7 RBC 4.26 Hgb 12.3 Hct 37.6 MCV 88.3 MCH 28.9 MCHC 32.7 RDW 15.3 H Plt Count 176 MPV 10.5 H Immature Gran % (Auto) 0.5 Neut % (Auto) 74.3 H Lymph % (Auto) 16.4 L [place] % (Auto) 7.7 Eos % (Auto) 0.8 Baso % (Auto) 0.3 Lymph # (Auto) 1.09 [place] # (Auto) 0.5 Eos # (Auto) 0.1 Baso # (Auto) 0.0 Abs Immat Gran (auto) 0.03 Absolute Neuts (auto) 5.0 Absolute Nucleated RBC 0.0 Nucleated RBC % 0.0 Sodium Potassium Chloride Carbon Dioxide Anion Gap BUN Creatinine Estim Creat Clear Calc Estimated GFR Glucose Uric Acid Calcium Total Bilirubin AST ALT Alkaline Phosphatase Total Protein Albumin RPR Non-reactive HIV 1&2 Ab/P24 Ag 4thGn Blood Type A Positive Antibody Screen Negative 07/30/22 08/01/22 08/01/22 14:20 05:17 12:54 WBC 9.0 RBC 3.42 L Hgb 10.0 L 10.1 L Hct 30.8 L 30.5 L MCV 89.2 MCH 29.5 MCHC 33.1 RDW 15.2 H Plt Count 151 MPV 10.7 H Immature Gran % (Auto) 0.7 H Neut % (Auto) 77.7 H Lymph % (Auto) 15.6 L [place] % (Auto) 3.8 Eos % (Auto) 1.6 Baso % (Auto) 0.6 Lymph # (Auto) 1.40 [place] # (Auto) 0.3 Eos # (Auto) 0.1 Baso # (Auto) 0.1 Abs Immat Gran (auto) 0.06 H Absolute Neuts (auto) 7.0 H Absolute Nucleated RBC 0.0 Nucleated RBC % 0.0 Sodium Potassium Chloride Carbon Dioxide Anion Gap BUN Creatinine Estim Creat Clear Calc Estimated GFR Glucose Uric Acid Calcium Total Bilirubin AST ALT Alkaline Phosphatase Total Protein Albumin RPR HIV 1&2 Ab/P24 Ag 4thGn Negative Blood Type Antibody Screen 08/01/22 08/01/22 12:54 13:03 WBC RBC Hgb Hct MCV MCH MCHC RDW Plt Count MPV Immature Gran % (Auto) Neut % (Auto) Lymph % (Auto) Day % (Auto) Eos % (Auto) Baso % (Auto) Lymph # (Auto) Day # (Auto) Eos # (Auto) Baso # (Auto) Abs Immat Gran (auto) Absolute Neuts (auto) Absolute Nucleated RBC Nucleated RBC % Sodium 138 Potassium 3.8 Chloride 105 Carbon Dioxide 22 Anion Gap 11 BUN 8 Creatinine 0.60 L Estim Creat Clear Calc 147 Estimated GFR > 60 Glucose 110 Uric Acid 4.5 Calcium 8.8 Total Bilirubin 0.2 AST 24 ALT 23 Alkaline Phosphatase 102 Total Protein 6.0 L Albumin 3.4 L RPR HIV 1&2 Ab/P24 Ag 4thGn Blood Type Antibody Screen Final Diagnosis (1) False labor: Code(s): O47.9 - False labor, unspecified Status: Acute
== END 2022-08-03 11:17 | disposition home or self-care (01) | DRG 807 ==
LOC: ANHLDR 19:03 → ANHOB2 08-02 09:39 → ANHLDR 08-04 12:25 → ANHOB2 08-04 12:25
PROVIDERS: Admitting Provider Student in an Organized Health Care Education/Training Program; Visit Provider Obstetrics & Gynecology
DX: O99.824 Streptococcus B carrier state complicating childbirth (principal); Z37.0 Single live birth; O99.214 Obesity complicating childbirth; E66.01 Morbid (severe) obesity due to excess calories; O76 Abnormality in fetal heart rate and rhythm complicating labor and delivery; O69.1XX0 Labor and delivery complicated by cord around neck, with compression, not applicable or unspecified; O77.0 Labor and delivery complicated by meconium in amniotic fluid; O70.1 Second degree perineal laceration during delivery; Z3A.40 40 weeks gestation of pregnancy; O16.5 Unspecified maternal hypertension, complicating the puerperium
CPT/HCPCS: 36415; 80053; 84112; 84550; 85014; 85018; 85025; 86592; 86703; 86850; 86900; 86901; 88307; A9270; G0432; J0290; J2590; J2795; J7030; J7120

== ENCOUNTER 2023-06-01 12:02 | Inpatient (IN) | payer BC, SELFPAY ==
--- NOTE | ~2023-06-01 | US_ITS ---
EXAMINATION: US soft tissue LE LT DATE: 06/03/2023 15:01 INDICATION: Status post incision and drainage of an abscess at the inner upper left thigh TECHNIQUE: Multiple grayscale and Doppler ultrasound images of the region of concern at the inner lef t thigh were obtained. COMPARISON: CT dated 06/01/2023 FINDINGS/IMPRESSION: Small amount of nonloculated edema interspersed amongst the subcutaneous fat at the region of concern . No organized abscess. Reviewed, dictated and finalized at location A.
--- NOTE | ~2023-06-01 | CT_ITS ---
EXAMINATION: CT LE LT w con DATE: 06/01/2023 16:50 INDICATION: Abscess of left upper inner thigh. TECHNIQUE: Computed tomography (CT) of the left lower limb was performed with 100 mL Omnipaque 350 in travenous contrast. Automated exposure control and iterative reconstruction technique were employed. The dose-length product was 1087.75 mGy-cm. COMPARISON: None FINDINGS: Bone alignment is normal. No fracture. There is mild osteoarthritis of the hips characteriz ed by tiny osteophytes. There is subcutaneous fat stranding in the medial left thigh with skin thicke antonino, consistent with cellulitis. In this area, there is a skin defect with subcutaneous hyperdense m aterial that is likely packing material. No residual drainable fluid. IMPRESSION: 1. Left medial thigh cellulitis and subcutaneous abscess with packing material. No residual drainable fluid. Reviewed, dictated and finalized at location A.
[2023-06-01 13:05] VITALS: BP 142/93; PULSE 96; RESP 16; TEMP 36.9; O2SAT 98
--- NOTE | 2023-06-01 15:01 | ED.SKABFB ---
HPI - Skin/Abscess/Foreign Bdy General Chief complaint: Skin/Abscess/Foreign Body Stated complaint: CELLULITIS Time Seen by Provider: 06/01/23 14:52 History of Present Illness HPI narrative: Pt pedritoy she noticed some tenderness in right upper inner thigh 5 days ago, 3 days ago it was a small pimple and she went to an [facility] and got prescribed Bactrim. Pt says the area is now more red and swollen and painful. Pt denies fever or chills or vomiting. Related Data Home Medications Medication Instructions Recorded Confirmed prenat.vits,christie,[id number] 1 tablet PO DAILY 01/03/22 nifedipine 60 mg tablet,extended 60 mg PO .QOD 09/11/22 release Allergies Allergy/AdvReac Type Severity Reaction Status Date / Time No Known Allergies Allergy Verified 06/01/23 12:02 Review of Systems Review of Systems: All systems reviewed & are unremarkable except as noted in HPI and below PMFSH Past Medical History Medical History IUP (intrauterine ), incidental Morbid obesity with BMI of 45.0-49.9, adult Normal spontaneous vaginal delivery Family History Family History Grandparent Cancer Grandparent Diabetes mellitus Heart disease Hypertension Grandparent Breast cancer Social History Social History Smoking status: Never smoker Second hand tobacco smoke exposure: No Alcohol intake: unknown Substance use: never Gender identity (if verbalized by the patient): Female Spiritual care concerns: No Exam Const: General: healthy appearing Nutritional Appearance: well nourished Orientation/consciousness: patient oriented x3 Limitations: no limitations Resp: Effort & Inspection: normal respiratory effort Auscultation: clear to auscultation bilaterally Cardio: Rate: regular rate Rhythm: regular rhythm Skin: Other: abscess inner right upper thigh with surrounding erythema Neuro: General: patient oriented x3 and no focal motor deficits Extrem: General: no clubbing, cyanosis or edema Psych: Mental Status: mental status grossly normal Affect: normal affect Attitude: cooperative Course Vital Signs Vital signs: Vital Signs Temperature 98.4 F 06/01/23 13:05 Pulse Rate 96 06/01/23 13:05 Respiratory Rate 16 06/01/23 13:05 Blood Pressure 142/93 H 06/01/23 13:05 Pulse Oximetry 98 06/01/23 13:05 Oxygen Delivery Room Air 06/01/23 13:05 Temperature 98.4 F 06/01/23 13:05 Pulse Rate 96 06/01/23 13:05 Respiratory Rate 16 06/01/23 13:05 Blood Pressure 142/93 H 06/01/23 13:05 Pulse Oximetry 98 06/01/23 13:05 Oxygen Delivery Room Air 06/01/23 13:05 Procedures Abscess I/D lower extremity: Date of Incision: 06/01/23 Time of Incision: 15:40 Side (if applicable): right Local Anesthetic: lidocaine 1% Amount of anesthesia used (mL): 10 Technique: incised with #11 blade and probed loculations Amount of fluid expressed (mL): 25 Packing used?: iodoform I&D Results: Pus Abcess I&D Additional Comments: dark very fould smelling purulent drainage MDM - Skin/Abscess/Foreign Bdy MDM Narrative Medical decision making narrative: pt had large amount of foul smelling purulent drainage on i and d. CT no large abscess left. Will admit overnight for IV antibiotics. discussed with Renetta Moreno and agrees to admit. Dr Renner called and aske to culture wound just in case it worsens. Lab Data 06/01/23 16:11 06/01/23 16:11 Labs: Lab Results 06/01/23 Range/Units 16:11 WBC 10.7 H (4.5-10.0) K/mm3 RBC 4.56 (4.2-5.4) M/mm3 Hgb 13.5 D (12.0-15.0) g/dL Hct 41.2 (37.0-47.0) % MCV 90.4 (80-100) fl MCH 29.6 (26-34) pg MCHC 32.8 (32-36) g/dl RDW 13.6 (11.5-14.5) % Plt Count 193 (150
[2023-06-01] MEDS: LIDOCAINE HCL 1% LOCAL INJ 10 ML VIAL INFILTRATE (15:09)
[2023-06-01 16:20] LABS: Basophils Absolute Auto 0.1 K/mm3 (0.0-0.1); Basophils Percent Auto 0.5 % (0.2-1.2); Eosinophils Absolute Auto 0.1 K/mm3 (0-0.3); Eosinophils Percent Auto 1.3 % (0-4.4); Hematocrit 41.2 % (37.0-47.0); Hemoglobin 13.5 g/dL (12.0-15.0); Immature Granulocyte Absolute 0.05 K/mm3 (0.00-0.031); Immature Granulocyte Percent A 0.5 % (0-0.5); Lymphocytes Absolute Auto 1.54 K/mm3 (0.9-3.2); Lymphocytes Percent Auto 14.4 % (18.3-44.2); Mean Corpuscular HGB Conc 32.8 g/dl (32-36); Mean Corpuscular Hemoglobin 29.6 pg (26-34); Mean Corpuscular Volume 90.4 fl (80-100); Mean Platelet Volume 10.3 fl (7.4-10.4); Monocytes Absolute Auto 0.7 K/mm3 (0.1-0.6); Monocytes Percent Auto 6.5 % (2.6-8.5); Neutrophils Absolute Auto 8.3 K/mm3 (1.3-6.7); Neutrophils Percent Auto 76.8 % (45.5-73.1); Platelet Count Result 193 k/mm3 (150-375); Red Blood Count 4.56 M/mm3 (4.2-5.4); Red Cell Distribution Width 13.6 % (11.5-14.5); White Blood Count 10.7 K/mm3 (4.5-10.0)
[2023-06-01 16:30] LABS: Alanine Aminotransferase 27 U/L (6-35); Albumin Level 4.5 g/dL (3.5-5.1); Alkaline Phosphatase 86 U/L (38-126); Anion Gap 11 mmol/L (8-16); Aspartate Amino Transferase 21 U/L (14-36); Bilirubin,Total 0.5 mg/dL (0.2-1.3); Blood Urea Nitrogen 11 mg/dL (7-17); Carbon Dioxide 23 mmol/L (22-30); Chloride 103 mmol/L (98-107); Estimated CRCL calculation 98 ml/min; Estimated Glomerular Filt Rate > 60; Glucose 92 mg/dL (65-110); Potassium 3.7 mmol/L (3.4-5.0); Sodium 137 mmol/L (137-145)
[2023-06-01] MEDS: CLINDAMYCIN 900 MG/D5W 50 ML 900 MG/50 ML PIGGYBACK 50 MG IVPB (17:25)
[2023-06-01] MEDS: VANCOMYCIN 1,250 MG/NS 250 ML 1,250 MG/250 ML BAG 166.67 MG IVPB (18:00)
[2023-06-01] MEDS: MORPHINE SULFATE (*CRX) 4 MG/ML INJ IV PUSH (18:43)
--- NOTE | 2023-06-01 19:14 | PM.IMHP ---
H&P: HPI History of Present Illness Date/Time: 06/01/23 19:14 Chief Complaint: Skin abscess Narrative: This is a 37-year-old female patient who developed some redness to her left inner thigh proximally 5 days ago. The patient stated that she thought it was just a pimple. The patient see that she went to Urgent Care was prescribed Bactrim that which was 1 today. She stated that she took that for 3 days in the redness continued to get worse. The area is approximately 10 x 10. The patient is more red and swollen and painful today. The patient denies any fever or chills or vomiting. The patient stated that she is still breast-feeding her [id number] and was concerned about taking antibiotics because of her . Her white count is 10.7. Neutrophil percentage 76.8. CT of the lower extremity was read as left medial thigh cellulitis and subcutaneous abscess with with packing material. No residual drainable fluid. The ED provider did I and D that abscess and packed it with iodiform. The patient was given Ativan prior to the procedure. She was initially ordered clindamycin but never received it. She was placed on vancomycin as well. She was given morphine for discomfort. The patient is admitted to observation status on the date of service of 06/01/2023. Review of Systems Review of Systems: All systems reviewed & are unremarkable except as noted in HPI and below Constitutional: Constitutional: Reports as per HPI and Reports no additional constitutional complaints Eyes: Eyes: Reports as per HPI and Reports no additional eye complaints ENT: Reports system reviewed and no additional complaints, except as documented and Reports Normal hearing present Cardiovascular: Cardiovascular: Reports no additional cardiovascular complaints Respiratory: Respiratory: Reports no additional respiratory complaints and Reports no additional respiratory complaints Gastrointestinal: Gastrointestinal: Reports as per HPI and Reports no additional gastrointestinal complaints Musculoskeletal: Musculoskeletal: Reports no additional musculoskeletal complaints Integumentary/Breasts: Skin/Breast: Reports system reviewed and no additional complaints, except as docu and Reports as per HPI Neurologic: Reports system reviewed and no additional complaints, except as documented, Reports as per HPI and Reports Normal hearing present Psychiatric: Psychiatric: Reports no additional psychiatric complaints and Reports as per HPI Endocrine: Endocrine: Reports no additional endocrine complaints Hematologic/Lymphatic: Hematologic/Lymphatic: Reports no additional hematologic/lymphatic complaints Allergic/Immunologic: Allergic/Immunologic: Reports no additional allergic/immunologic complaints [facility] Past Medical History Medical History (Updated 06/01/23 @ 22:52 by Renetta Marcelino NP) Elevated BP without diagnosis of hypertension IUP (intrauterine ), incidental Morbid obesity with BMI of 45.0-49.9, adult Normal spontaneous vaginal delivery hypertension Surgical History Surgical History (Updated 06/01/23 @ 19:17 by Renetta Marcelino NP) H/O wisdom tooth extraction History of placement of ear tubes History of tonsillectomy and adenoidectomy Family History Family History Grandparent Cancer Grandparent Diabetes mellitus Heart disease Hypertension Grandparent Breast cancer Social History Social History (Updated 06/01/23 @ 22:48 by Renetta Marcelino NP) Social History: She lives with katerina and her [id number] child. She is a lifelong nonsmoker. 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 status full code Smoking status: Never smoker Second hand tobacco smoke exposure: No Alcohol intake: never Substance use: never Substance use type: marijuana Lack of Transportation: No Lack of Food: Never True Current Housing: I Have Housing Concer
[2023-06-01 19:51] VITALS: BP 139/76; PULSE 92; RESP 14; O2SAT 100
[2023-06-01] MEDS: HYDROcodone/acetaminophen (*CRX) 5-325 MG TABLET 1 TAB PO (20:31)
--- NOTE | 2023-06-01 20:34 | ADMGEN ---
This patient, Karmen Schmidt, was admitted to Medical Room 252-01. Patient/family oriented to hospital policies and general routines including ID bracelet, bed and alarms, visiting hours, pain management, procedures, bathroom and other care routines, personal items, smoking policy, room service/diet, and visiting hours. Information on how to activate the Rapid Response Team has been discussed. Patient/Family are encouraged to report perceived risks to care and to ask questions if they do not understand what they are told or what they should do.
[2023-06-01 22:17] VITALS: BP 122/78; PULSE 94; RESP 21; TEMP 37.2; O2SAT 100
[2023-06-02] MEDS: HYDROcodone/acetaminophen (*CRX) 5-325 MG TABLET 1 TAB PO ×2 (03:10→08:21)
[2023-06-02 05:35] LABS: Basophils Percent Auto 0.6 % (0.2-1.2); Eosinophils Absolute Auto 0.2 K/mm3 (0-0.3); Eosinophils Percent Auto 2.8 % (0-4.4); Hemoglobin 12.2 g/dL (12.0-15.0); Immature Granulocyte Absolute 0.02 K/mm3 (0.00-0.031); Immature Granulocyte Percent A 0.3 % (0-0.5); Lymphocytes Percent Auto 19.3 % (18.3-44.2); Mean Corpuscular HGB Conc 32.1 g/dl (32-36); Mean Corpuscular Hemoglobin 29.5 pg (26-34); Mean Corpuscular Volume 91.8 fl (80-100); Mean Platelet Volume 10.6 fl (7.4-10.4); Monocytes Absolute Auto 0.4 K/mm3 (0.1-0.6); Monocytes Percent Auto 6.5 % (2.6-8.5); Neutrophils Absolute Auto 4.8 K/mm3 (1.3-6.7); Neutrophils Percent Auto 70.5 % (45.5-73.1); Platelet Count Result 181 k/mm3 (150-375); Red Blood Count 4.14 M/mm3 (4.2-5.4); Red Cell Distribution Width 13.8 % (11.5-14.5); White Blood Count 6.7 K/mm3 (4.5-10.0)
[2023-06-02 05:41] LABS: Alanine Aminotransferase 24 U/L (6-35); Albumin Level 3.7 g/dL (3.5-5.1); Alkaline Phosphatase 63 U/L (38-126); Anion Gap 8 mmol/L (8-16); Aspartate Amino Transferase 17 U/L (14-36); Bilirubin,Total 0.4 mg/dL (0.2-1.3); Blood Urea Nitrogen 10 mg/dL (7-17); Calcium 8.4 mg/dL (8.4-10.2); Carbon Dioxide 23 mmol/L (22-30); Chloride 104 mmol/L (98-107); Estimated CRCL calculation 98 ml/min; Estimated Glomerular Filt Rate > 60; Glucose 106 mg/dL (65-110); Potassium 3.9 mmol/L (3.4-5.0); Sodium 135 mmol/L (137-145)
[2023-06-02 05:44] LABS: Lactic Acid Reflex 0.8 mmol/L (0.7-2.0)
[2023-06-02 06:00] VITALS: BP 110/68; PULSE 83; RESP 20; TEMP 36.8; O2SAT 98
[2023-06-02 08:50] VITALS: PULSE 89; O2SAT 97
--- NOTE | 2023-06-02 11:05 | PM.IMPN ---
Progress Note: A&P Assessment and Plan (1) Abscess: Code(s): L02.91 - Cutaneous abscess, unspecified Status: Acute (2) Cellulitis: Code(s): L03.90 - Cellulitis, unspecified Status: Acute Plan ?37-year-old female patient presented with left thigh redness and swelling..? CT of the lower extremity was read as left medial thigh cellulitis and subcutaneous abscess with with packing material.?s/p I and D in ER. Started on IV vancomycin 1)Left Thigh Cellulitis with abscess: c/w Vancomycin Pain control Await blood culture Leucocytosis has resolved 2)DVT ppx: Add Hep SQ 3)Code:Full 4)Dispo:pending improvement Time Spent With Patient Time with patient: 25 - 35 minutes Subjective Date/time seen: 06/02/23 11:05 Interval history: no acute events overnight, no fever overnight Review of Systems Review of Systems: All ROS is unremarkable Exam Const: General: no acute distress HENMT: Mouth: Yes moist mucous membranes Eyes: Sclera: sclerae normal Neck: Neck: supple Resp: Effort & Inspection: normal respiratory effort Auscultation: clear to auscultation bilaterally Cardio: Rate: regular rate Rhythm: regular rhythm GI: GI Palp: Yes Soft to palpation Neuro: Speech: normal speech Extrem: Other: left inner thigh induration with dressing+ Non tender in surrounding area Psych: Mental Status: mental status grossly normal Objective Data Vital Signs Vital Signs: Vital Signs - 24 hr 06/01/23 13:05 06/01/23 19:51 06/01/23 20:37 Temperature 98.4 F Pulse Rate 96 92 Respiratory Rate 16 14 Blood Pressure 142/93 H 139/76 Pulse Oximetry 98 100 Oxygen Delivery Room Air Room Air 06/01/23 22:17 06/02/23 06:00 06/02/23 08:50 Temperature 98.9 F 98.2 F Pulse Rate 94 83 89 Respiratory Rate 21 H 20 Blood Pressure 122/78 110/68 Pulse Oximetry 100 98 97 Oxygen Delivery Room Air 06/02/23 08:20 Temperature Pulse Rate Respiratory Rate Blood Pressure Pulse Oximetry Oxygen Delivery Room Air Intake/Output Intake/Output: Intake & Output 05/30/23 05/31/23 06/01/23 06/02/23 23:59 23:59 23:59 23:59 Intake Total 300 1210 Output Total 400 Balance 300 810 Meds/Results Medications: Active Medications Generic Name Dose Route Start Last Admin Trade Name Freq PRN Reason Stop Dose Admin Acetaminophen 500 mg 06/01/23 22:53 Acetaminophen 500 Mg Tablet PO Q6H PRN Mild Pain (1-3) or Fever Hydrocodone Bitart/Acetaminophen 1 tab 06/01/23 19:19 06/02/23 08:21 Hydrocodone/Acetaminophen (*Crx) 5-325 Mg Tablet PO 1 tab Q4H PRN Administration Pain Rated 4-6 Hydralazine HCl 10 mg 06/01/23 22:51 Hydralazine Hcl 20 Mg/Ml Vial IV PUSH Q8H PRN Blood Pressure - High Vancomycin HCl 1,500 mg in 500 mls @ 250 mls/hr 06/02/23 05:00 06/02/23 08:23 Vancomycin 1,500 Mg/D5w 500 Ml IVPB 250 mls/hr Q12H DEMETRIS Infusion Radiology Results: ITS Impressions Lower Extremity CT 06/01/23 16:54 IMPRESSION: 1. Left medial thigh cellulitis and subcutaneous abscess with packing material. No residual drainable fluid. Labs Labs: Laboratory Results - last 24 hr 06/01/23 06/02/23 16:11 05:04 WBC 10.7 H 6.7 RBC 4.56 4.14 L Hgb 13.5 D 12.2 Hct 41.2 38.0 MCV 90.4 91.8 MCH 29.6 29.5 MCHC 32.8 32.1 RDW 13.6 13.8 Plt Count 193 181 MPV 10.3 10.6 H Immature Gran % (Auto) 0.5 0.3 Neut % (Auto) 76.8 H 70.5 Lymph % (Auto) 14.4 L 19.3 [place] % (Auto) 6.5 6.5 Eos % (Auto) 1.3 2.8 Baso % (Auto) 0.5 0.6 Lymph # (Auto) 1.54 1.30 [place] # (Auto) 0.7 H 0.4 Eos # (Auto) 0.1 0.2 Baso # (Auto) 0.1 0.0 Abs Immat Gran (auto) 0.05 H 0.02 Absolute Neuts (auto) 8.3 H 4.8 Absolute Nucleated RBC 0.0 0.0 Nucleated RBC % 0.0 0.0 Sodium 137 135 L Potassium 3.7 3.9 Chloride 103 104 Carbon Dioxide 23 23 Anion Gap 11 8 BUN 11 10 Creatinine 0.80 0.8
[2023-06-02] MEDS: HEPARIN SODIUM 5,000 UNITS/ML VIAL 5000 UNITS SUB-Q ×2 (12:31→20:12)
[2023-06-02] MEDS: ACETAMINOPHEN 500 MG TABLET PO ×2 (13:59→20:12)
[2023-06-02 14:00] VITALS: BP 139/77; PULSE 84; RESP 16; TEMP 36.6; O2SAT 100
[2023-06-02 21:29] VITALS: O2SAT 99
[2023-06-02 22:00] VITALS: BP 126/85; PULSE 78; RESP 21; TEMP 36.7; O2SAT 100
[2023-06-03] MEDS: ACETAMINOPHEN 500 MG TABLET PO (02:34)
[2023-06-03 04:35] LABS: Basophils Percent Auto 0.6 % (0.2-1.2); Eosinophils Absolute Auto 0.2 K/mm3 (0-0.3); Eosinophils Percent Auto 3.4 % (0-4.4); Hematocrit 39.6 % (37.0-47.0); Hemoglobin 12.6 g/dL (12.0-15.0); Immature Granulocyte Absolute 0.03 K/mm3 (0.00-0.031); Immature Granulocyte Percent A 0.6 % (0-0.5); Lymphocytes Absolute Auto 1.34 K/mm3 (0.9-3.2); Lymphocytes Percent Auto 28.3 % (18.3-44.2); Mean Corpuscular HGB Conc 31.8 g/dl (32-36); Mean Corpuscular Hemoglobin 29.3 pg (26-34); Mean Corpuscular Volume 92.1 fl (80-100); Mean Platelet Volume 10.1 fl (7.4-10.4); Monocytes Absolute Auto 0.3 K/mm3 (0.1-0.6); Monocytes Percent Auto 6.8 % (2.6-8.5); Neutrophils Absolute Auto 2.9 K/mm3 (1.3-6.7); Neutrophils Percent Auto 60.3 % (45.5-73.1); Platelet Count Result 187 k/mm3 (150-375); Red Cell Distribution Width 13.7 % (11.5-14.5); White Blood Count 4.7 K/mm3 (4.5-10.0)
[2023-06-03 04:51] LABS: Anion Gap 5 mmol/L (8-16); Blood Urea Nitrogen 8 mg/dL (7-17); Calcium 8.4 mg/dL (8.4-10.2); Carbon Dioxide 27 mmol/L (22-30); Chloride 105 mmol/L (98-107); Estimated CRCL calculation 111 ml/min; Estimated Glomerular Filt Rate > 60; Glucose 93 mg/dL (65-110); Potassium 4.1 mmol/L (3.4-5.0); Sodium 137 mmol/L (137-145)
[2023-06-03 05:43] LABS: Vancomycin Trough 8.5 ug/mL (10.0-20.0)
[2023-06-03 06:09] VITALS: BP 127/72; PULSE 64; RESP 18; TEMP 36.8; O2SAT 96
[2023-06-03] MEDS: HYDROcodone/acetaminophen (*CRX) 5-325 MG TABLET 1 TAB PO ×4 (06:11→22:27)
[2023-06-03] MEDS: HEPARIN SODIUM 5,000 UNITS/ML VIAL 5000 UNITS SUB-Q ×2 (08:37→21:17)
[2023-06-03 14:00] VITALS: BP 127/73; PULSE 89; RESP 16; TEMP 36.3; O2SAT 100
--- NOTE | 2023-06-03 14:09 | PM.IMPN ---
Progress Note: A&P Assessment and Plan (1) Abscess: Code(s): L02.91 - Cutaneous abscess, unspecified Status: Acute (2) Cellulitis: Code(s): L03.90 - Cellulitis, unspecified Status: Acute Plan ?37-year-old female patient presented with left thigh redness and swelling..? CT of the lower extremity was read as left medial thigh cellulitis and subcutaneous abscess with with packing material.?s/p I and D in ER. Started on IV vancomycin 1)Left Thigh Cellulitis with abscess: c/w Vancomycin Pain control Await blood culture Repeat Soft tissue USG Wound care consult 2)DVT ppx: Add Hep SQ 3)Code:Full 4)Dispo:pending improvement Time Spent With Patient Time with patient: 25 - 35 minutes Subjective Date/time seen: 06/03/23 14:09 Interval history: no acute events overnight, no fever overnight, redness has improved but swelling seems to be worse Review of Systems Review of Systems: All ROS is unremarkable Exam Const: General: no acute distress HENMT: Mouth: Yes moist mucous membranes Eyes: Sclera: sclerae normal Neck: Neck: supple Resp: Effort & Inspection: normal respiratory effort Auscultation: clear to auscultation bilaterally Cardio: Rate: regular rate Rhythm: regular rhythm GI: GI Palp: Yes Soft to palpation Neuro: Speech: normal speech Extrem: Other: left inner thigh induration with dressing+ Non tender in surrounding area Psych: Mental Status: mental status grossly normal Objective Data Vital Signs Vital Signs: Vital Signs - 24 hr 06/02/23 20:00 06/02/23 22:00 06/02/23 21:29 Temperature 98.1 F Pulse Rate 78 Respiratory Rate 21 H Blood Pressure 126/85 Pulse Oximetry 100 99 Oxygen Delivery Room Air Room Air 06/03/23 06:09 06/03/23 08:30 Temperature 98.2 F Pulse Rate 64 Respiratory Rate 18 Blood Pressure 127/72 Pulse Oximetry 96 Oxygen Delivery Room Air Intake/Output Intake/Output: Intake & Output 05/31/23 06/01/23 06/02/23 06/03/23 23:59 23:59 23:59 23:59 Intake Total 300 4330 1180 Output Total 400 Balance 300 3930 1180 Meds/Results Medications: Active Medications Generic Name Dose Route Start Last Admin Trade Name Freq PRN Reason Stop Dose Admin Acetaminophen 500 mg 06/01/23 22:53 06/03/23 02:34 Acetaminophen 500 Mg Tablet PO 500 mg Q6H PRN Administration Mild Pain (1-3) or Fever Hydrocodone Bitart/Acetaminophen 1 tab 06/01/23 19:19 06/03/23 06:11 Hydrocodone/Acetaminophen (*Crx) 5-325 Mg Tablet PO 1 tab Q4H PRN Administration Pain Rated 4-6 Heparin Sodium (Porcine) 5,000 units 06/02/23 11:20 06/03/23 08:37 Heparin Sodium 5,000 Units/Ml Vial SUB-Q 5,000 units Q12HR DEMETRIS Administration Hydralazine HCl 10 mg 06/01/23 22:51 Hydralazine Hcl 20 Mg/Ml Vial IV PUSH Q8H PRN Blood Pressure - High Vancomycin HCl 1,500 mg in 500 mls @ 250 mls/hr 06/03/23 14:00 Vancomycin 1,500 Mg/D5w 500 Ml IVPB Q8H FORMERLY [facility], [facility]–1983 Radiology Results: ITS Impressions Lower Extremity CT 06/01/23 16:54 IMPRESSION: 1. Left medial thigh cellulitis and subcutaneous abscess with packing material. No residual drainable fluid. Labs Labs: Laboratory Results - last 24 hr 06/03/23 04:17 WBC 4.7 RBC 4.30 Hgb 12.6 Hct 39.6 MCV 92.1 MCH 29.3 MCHC 31.8 L RDW 13.7 Plt Count 187 MPV 10.1 Immature Gran % (Auto) 0.6 H Neut % (Auto) 60.3 Lymph % (Auto) 28.3 [place] % (Auto) 6.8 Eos % (Auto) 3.4 Baso % (Auto) 0.6 Lymph # (Auto) 1.34 [place] # (Auto) 0.3 Eos # (Auto) 0.2 Baso # (Auto) 0.0 Abs Immat Gran (auto) 0.03 Absolute Neuts (auto) 2.9 Absolute Nucleated RBC 0.0 Nucleated RBC % 0.0 Sodium 137 Potassium 4.1 Chloride 105 Carbon Dioxide 27 Anion Gap 5 L BUN 8 Creatinine 0.70 Estim Creat Clear Calc 111 Estimated GFR > 60 Glucose 93 Calcium 8.4 Vancomycin Trough 8.5 L Quality VTE Prophylaxis V
[2023-06-03 21:45] VITALS: BP 133/88; PULSE 83; RESP 20; TEMP 36.2; O2SAT 98
--- NOTE | 2023-06-04 05:45 | PC.NURSE ---
Orienting nurse Jay Lang RN license pending has preformed all assessments and documentation on this patient and has been reviewed.
[2023-06-04 06:00] VITALS: BP 114/75; PULSE 83; RESP 20; TEMP 36.6; O2SAT 98
[2023-06-04 06:02] LABS: Basophils Percent Auto 0.6 % (0.2-1.2); Eosinophils Absolute Auto 0.1 K/mm3 (0-0.3); Eosinophils Percent Auto 2.8 % (0-4.4); Hematocrit 40.4 % (37.0-47.0); Hemoglobin 12.8 g/dL (12.0-15.0); Immature Granulocyte Absolute 0.02 K/mm3 (0.00-0.031); Immature Granulocyte Percent A 0.4 % (0-0.5); Lymphocytes Absolute Auto 1.52 K/mm3 (0.9-3.2); Lymphocytes Percent Auto 30.6 % (18.3-44.2); Mean Corpuscular HGB Conc 31.7 g/dl (32-36); Mean Corpuscular Hemoglobin 29.3 pg (26-34); Mean Corpuscular Volume 92.4 fl (80-100); Mean Platelet Volume 9.9 fl (7.4-10.4); Monocytes Absolute Auto 0.3 K/mm3 (0.1-0.6); Monocytes Percent Auto 6.3 % (2.6-8.5); Neutrophils Absolute Auto 2.9 K/mm3 (1.3-6.7); Neutrophils Percent Auto 59.3 % (45.5-73.1); Platelet Count Result 204 k/mm3 (150-375); Red Blood Count 4.37 M/mm3 (4.2-5.4); Red Cell Distribution Width 13.5 % (11.5-14.5)
[2023-06-04] MEDS: HEPARIN SODIUM 5,000 UNITS/ML VIAL 5000 UNITS SUB-Q ×2 (08:56→20:19)
[2023-06-04 09:18] LABS: Anion Gap 1 mmol/L (8-16); Blood Urea Nitrogen 10 mg/dL (7-17); Calcium 8.6 mg/dL (8.4-10.2); Carbon Dioxide 27 mmol/L (22-30); Chloride 105 mmol/L (98-107); Estimated CRCL calculation 111 ml/min; Estimated Glomerular Filt Rate > 60; Glucose 87 mg/dL (65-110); Potassium 4.4 mmol/L (3.4-5.0); Sodium 133 mmol/L (137-145)
[2023-06-04] MEDS: ACETAMINOPHEN 500 MG TABLET PO (09:45)
--- NOTE | 2023-06-04 12:18 | PM.IMPN ---
Progress Note: A&P Assessment and Plan (1) Abscess: Code(s): L02.91 - Cutaneous abscess, unspecified Status: Acute (2) Cellulitis: Code(s): L03.90 - Cellulitis, unspecified Status: Acute Plan ?37-year-old female patient presented with left thigh redness and swelling.? CT of the lower extremity was read as left medial thigh cellulitis and subcutaneous abscess with with packing material.?s/p I and D in ER. Started on IV vancomycin. Still with considerable pain. US yesterday not showing discreet abscess. May need this area open further given the pain since we are unable to do dressing changes. BCx negative. Wound Cx negative. Patient to continue to pump and dump breast milk. General surgery consult DVT ppx: Add Hep SQ Code:Full Dispo:home Subjective Date/time seen: 06/04/23 12:18 Interval history: 37yo female here for left thigh pain, swelling and redness. She is alos post- from august delivery and is still breast feeding. She is pumping/dumping currently. She does not have any pain at rest but only with dressing changes. She does not feel she can do the dressing changes herself. Exam Narrative: AF 97.8 114/75 83 20 98% ra Gen - NARD Chest - CTA bilaterally, nml RR CV - RRR S1/S2 Abd - Soft, NT/ND, Positive BS Ext - No pedal edema Psych - Nml mood and affect but does become tearful at times about having to stay in the hospital Skin - Warm and dry. Left inner thigh with a 8-9cm indurated area around small ulcer that is draining purulent fluid. Objective Data Vital Signs Vital Signs: Vital Signs - 24 hr 06/03/23 14:00 06/03/23 20:00 06/03/23 21:45 Temperature 97.4 F L 97.2 F L Pulse Rate 89 83 Respiratory Rate 16 20 Blood Pressure 127/73 133/88 Pulse Oximetry 100 98 Oxygen Delivery Room Air 06/04/23 06:00 06/04/23 08:00 Temperature 97.8 F Pulse Rate 83 Respiratory Rate 20 Blood Pressure 114/75 Pulse Oximetry 98 Oxygen Delivery Room Air Intake/Output Intake/Output: Intake & Output 06/01/23 06/02/23 06/03/23 06/04/23 23:59 23:59 23:59 23:59 Intake Total 300 4330 2970 740 Output Total 400 Balance 300 3930 2970 740 Meds/Results Medications: Active Medications Generic Name Dose Route Start Last Admin Trade Name Freq PRN Reason Stop Dose Admin Acetaminophen 500 mg 06/01/23 22:53 06/04/23 09:45 Acetaminophen 500 Mg Tablet PO 500 mg Q6H PRN Administration Mild Pain (1-3) or Fever Hydrocodone Bitart/Acetaminophen 1 tab 06/01/23 19:19 06/03/23 22:27 Hydrocodone/Acetaminophen (*Crx) 5-325 Mg Tablet PO 1 tab Q4H PRN Administration Pain Rated 4-6 Heparin Sodium (Porcine) 5,000 units 06/02/23 11:20 06/04/23 08:56 Heparin Sodium 5,000 Units/Ml Vial SUB-Q 5,000 units Q12HR DEMETRIS Administration Hydralazine HCl 10 mg 06/01/23 22:51 Hydralazine Hcl 20 Mg/Ml Vial IV PUSH Q8H PRN Blood Pressure - High Vancomycin HCl 1,500 mg in 500 mls @ 250 mls/hr 06/04/23 18:00 Vancomycin 1,500 Mg/D5w 500 Ml IVPB Q12H DEMETRIS Radiology Results: ITS Impressions Lower Extremity CT 06/01/23 16:54 IMPRESSION: 1. Left medial thigh cellulitis and subcutaneous abscess with packing material. No residual drainable fluid. Labs Labs: Laboratory Results - last 24 hr 06/04/23 06/04/23 05:42 05:46 WBC 5.0 RBC 4.37 Hgb 12.8 Hct 40.4 MCV 92.4 MCH 29.3 MCHC 31.7 L RDW 13.5 Plt Count 204 MPV 9.9 Immature Gran % (Auto) 0.4 Neut % (Auto) 59.3 Lymph % (Auto) 30.6 [place] % (Auto) 6.3 Eos % (Auto) 2.8 Baso % (Auto) 0.6 Lymph # (Auto) 1.52 [place] # (Auto) 0.3 Eos # (Auto) 0.1 Baso # (Auto) 0.0 Abs Immat Gran (auto) 0.02 Absolute Neuts (auto) 2.9 Absolute Nucleated RBC 0.0 Nucleated RBC % 0.0 Sodium 133 L Potassium 4.4 Chloride 105 Carbon Dioxide 27 Anion Gap 1 L BUN 10 Creatinine 0.70 Estim Creat Clear Calc
[2023-06-04 14:00] VITALS: BP 135/81; PULSE 98; RESP 18; TEMP 36.8; O2SAT 98
--- NOTE | 2023-06-04 16:44 | PC.NURSE ---
[id number] Consulted with patient due to she had called the service line concerned about her decreasing milk supply. She states she has been in the hospital since Thursday and was instructed to pump and dump. [id number] has been her 10 month old up to this admission. Discussed with mother the risks and following the doctors orders and how to have an open question conversation with her doctors and nurses about her concerns. Mother is missing her family and her infant. Mother is tearful at times and desires to go home. Resources, encouragement, open listening and education was given to mother so she can make inform decisions and attempt to increase her milk supply. services were offered for further assistance if needed. Mother had a few laughs and voiced understanding of the information.
--- NOTE | 2023-06-04 17:57 | PM.CNGS ---
Assessment and Plan Assessment and plan (1) Abscess of left thigh: Code(s): L02.416 - Cutaneous abscess of left lower limb Status: Acute Assessment and Plan: Well drained by the emergency room physician. No significant residual abscess and no significant surrounding cellulitis. Can stop antibiotics and discharge patient tomorrow. She can take the rest of her Bactrim or not take any antibiotics. She will need to pack the wound with a small amount of iodoform Nu gauze daily to keep the skin opening from closing prematurely. She should shower or bathe daily. She can re-dress the wound after daily shower. I will see her in the office in 2 weeks for further management. I emphasized the need to at least place some packing in the wound each day to avoid premature skin closure and recurrent abscess. Thank you for asking me to see this patient in consultation. I will place discharge instructions and hopefully patient can be discharged tomorrow. History of Present Illness Consult details Consult date: 06/04/23 Reason for consult: other (Abscess left proximal thigh) Narrative: Patient is a 37-year-old woman who came to the emergency room on 06/01/2023 with swelling and an abscess in the left medial proximal thigh. This was drained in the emergency room and showed copious amounts of foul-smelling purulent fluid. Cultures were done and showed only skin stephanie, essentially negative. She was admitted and started on broad-spectrum antibiotics. Blood cultures have been negative as well. The wound is been very tender. She is seen in consultation regarding management of the abscess and the resulting wound after drainage procedure 3 days ago. Review of Systems Review of Systems: All systems reviewed & are unremarkable except as noted in HPI and below (HPI and those items noted below) Constitutional: Constitutional: Denies chills and Denies fever(s) Cardiovascular: Cardiovascular: Denies chest pain, Denies diaphoresis, Denies dyspnea and Denies paroxysmal nocturnal dyspnea Respiratory: Respiratory: Denies chest congestion, Denies cough and Denies dyspnea Integumentary/Breasts: Skin/Breast: Denies lesions and Denies rash PMFSH Past Medical History Medical History Elevated BP without diagnosis of hypertension IUP (intrauterine ), incidental Morbid obesity with BMI of 45.0-49.9, adult Normal spontaneous vaginal delivery hypertension Surgical History Surgical History H/O wisdom tooth extraction History of placement of ear tubes History of tonsillectomy and adenoidectomy Family History Family History Grandparent Cancer Grandparent Diabetes mellitus Heart disease Hypertension Grandparent Breast cancer Social History Social History Social History: She lives with katerina and her [id number] child. She is a lifelong nonsmoker. 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 status full code Smoking status: Never smoker Second hand tobacco smoke exposure: No Alcohol intake: never Substance use: never Substance use type: marijuana Lack of Transportation: No Lack of Food: Never True Current Housing: I Have Housing Concerned About Future Housing: No Difficulty Paying Gas/Electric Bills: No Difficulty Paying for Meds: No Currently Unemployed: No Education: Master's Degree or Higher Difficulty w/ Childcare or Family Care: No Gender identity (if verbalized by the patient): Female Spiritual care concerns: No Meds Home Medications and Allergies Home Medications Medication Instructions Recorded Confirmed Type miscellaneous medical supply #1 ea 08/04/22 06/01/23 Rx (Blood Pressure Cuff) sulfamethoxazole 800 1 tablet PO DAILY 06/01/23
[2023-06-04 20:02] VITALS: BP 130/73; PULSE 84; RESP 16; TEMP 36.4; O2SAT 100
[2023-06-05 04:24] VITALS: BP 137/81; PULSE 74; RESP 16; TEMP 36.4; O2SAT 100
[2023-06-05] MEDS: HEPARIN SODIUM 5,000 UNITS/ML VIAL 5000 UNITS SUB-Q (09:04)
--- NOTE | 2023-06-05 10:05 | PM.PNGS ---
Progress Note: A&P Assessment and Plan (1) Abscess of left thigh: Code(s): L02.416 - Cutaneous abscess of left lower limb Status: Acute Assessment and Plan: Recommend discharge today with patient to do Nu gauze packing daily at home. I went over the instructions with her again today. She has an appointment to see Dr. Renner on June 09 in the office in follow-up. Recommend discharge today. Subjective Subjective Date/Time Seen: 06/05/23 10:05 Patient reports: no new complaints, feels better, pain is less and afebrile Review of Systems Review of Systems: All systems reviewed & are unremarkable except as noted in HPI and below (HPI) Exam Const: General: comfortable and no acute distress Orientation/consciousness: patient oriented x3 Neuro: General: patient oriented x3 and no focal motor deficits Extrem: General: no calf tenderness and no edema Left lower extremity: hip/thigh (Serosanguineous drainage, no new swelling or erythema) Details: tenderness; no crepitus and no unusual warmth Psych: Affect: normal affect Insight: Good insight present (Psych) Judgement: Good judgement present (Psych) Objective Data Vital Signs Vital Signs: Vital Signs - 24 hr 06/04/23 14:00 06/04/23 20:02 06/05/23 04:24 Temperature 36.8 C 36.4 C 36.4 C Pulse Rate 98 84 74 Respiratory Rate 18 16 16 Blood Pressure 135/81 130/73 137/81 Pulse Oximetry 98 100 100 Intake/Output Intake/Output: Intake & Output 06/02/23 06/03/23 06/04/23 06/05/23 23:59 23:59 23:59 23:59 Intake Total 4330 2970 1360 300 Output Total 400 Balance 3930 2970 1360 300 Meds/Results Medications: Active Medications Generic Name Dose Route Start Last Admin Trade Name Freq PRN Reason Stop Dose Admin Acetaminophen 500 mg 06/01/23 22:53 06/04/23 09:45 Acetaminophen 500 Mg Tablet PO 500 mg Q6H PRN Administration Mild Pain (1-3) or Fever Hydrocodone Bitart/Acetaminophen 1 tab 06/01/23 19:19 06/03/23 22:27 Hydrocodone/Acetaminophen (*Crx) 5-325 Mg Tablet PO 1 tab Q4H PRN Administration Pain Rated 4-6 Heparin Sodium (Porcine) 5,000 units 06/02/23 11:20 06/05/23 09:04 Heparin Sodium 5,000 Units/Ml Vial SUB-Q 5,000 units Q12HR DEMETRIS Administration Hydralazine HCl 10 mg 06/01/23 22:51 Hydralazine Hcl 20 Mg/Ml Vial IV PUSH Q8H PRN Blood Pressure - High Vancomycin HCl 1,500 mg in 500 mls @ 250 mls/hr 06/04/23 18:00 06/05/23 05:37 Vancomycin 1,500 Mg/D5w 500 Ml IVPB 250 mls/hr Q12H DEMETRIS Administration Radiology Results: ITS Impressions Lower Extremity CT 06/01/23 16:54 IMPRESSION: 1. Left medial thigh cellulitis and subcutaneous abscess with packing material. No residual drainable fluid.
--- NOTE | 2023-06-05 10:45 | PM.DS ---
DS: Admitting Diagnosis Discharge Date 06/05/23 Admitting Diagnosis Skin redness and pain DS: Discharge Diagnosis Discharge Diagnosis (1) Abscess: Code(s): L02.91 - Cutaneous abscess, unspecified Status: Acute (2) Cellulitis: Code(s): L03.90 - Cellulitis, unspecified Status: Acute DS: Summary Hospital Course Reason for hospitalization: 37-year-old female patient who presented with left thigh redness and swelling.?Please see H&P for details. Hospital Course: CT of the lower extremity showing left medial thigh cellulitis and subcutaneous abscess with packing material.?Patient underwent I&D in the ER. She was started on IV vancomycin. The erythema resolved but patient was still having considerable pain. Soft tissue US did not show a discreet abscess. BCx NGTD. Wound Cx negative. Because of the continued pain, GenSurg consulted but they did not feel the wound needed to be enlarged. Dressing change instructions given. Patient is still breast feeding and she continued to pump and dump breast milk. General surgery did not recommend abx at this point so Vancomycin stopped. Patient states the pain is better today and she is tolerating the dressing changes today. Patient feels ready for discharge and feels she (or her significant other) can do the dressing changes. Discussed with pharmacy and she can resume breast feeding tomorrow. She overall did well and was able to be discharged home on 06/05/23. Status at Discharge Cognitive/behavioral status at discharge: stable Time Spent with Patient Time attestation: Total time spent providing and/or coordinating discharge services: 34 minutes Time spent: Greater than 30 minutes Exam Narrative: AF 97.6 137/81 74 16 100% ra Gen - NARD Chest - CTA bilaterally, nml RR CV - RRR S1/S2 Abd - Soft, NT/ND, Positive BS Ext - No pedal edema Psych - Nml mood and affect Skin - Warm and dry. Left inner thigh with a 7-8cm indurated area around small incision but no surrounding erythema. DS: Data Data Completed and Pending Labs on day of discharge: Preliminary micro results at discharge 06/01/23 16:11 Blood Culture - Preliminary Blood 06/01/23 16:12 Blood Culture - Preliminary Blood Discharge Plan Discharge Attending physician on discharge: Federico Prakash Consulting providers: Jorge Vaca; Abran [place] Discharging Clinician: Federico Prakash Anticipated Discharge Date/Time: 06/05/23 10:54 Patient Disposition: Home, Self-Care Activity: as tolerated Diet: regular Wound Care Instructions: follow printed instructions and remove dressing to shower Discharge Instructions: Wound Care Instructions: Change the dressing once a day. Get in the shower for easy packing removal. Let the soapy water run over the wound area. Gently dry the skin after the shower loosely pack the wound with 1/2 inch Iodoform ribbon packing strip, then cover with dry gauze. You will follow up with Dr. Renner, general surgery for wound evaluation on Friday June 09, 2023 at 10:00AM Please arrive to the office at 9:45AM Office is located in the lobby of [address], [address]. Office phone number is [phone] Contact your doctor or call 911 and come to the Emergency Room if you have fevers or other worrisome symptoms. Follow-up with your primary care provider in 1-2 weeks. Please call for appointment. Okay to resume breast feeding tomorrow (pump at least two times before resuming breast feeding) Thank you for using [facility] for your health care needs. Patient Instructions: Antibiotic Form, Pain Management (DC) Stand Alone Forms: General Discharge Information, Work/School Release IP Follow-up/Referrals: Eryn Renner MD [Physician] - 06/09/23 10:00 am (Office is located at [facility] through [address], [address] office phone number is [phone]) Discharge Medications: Continued (D
[2023-06-05 14:00] VITALS: BP 141/86; PULSE 87
[2023-06-05 14:15] VITALS: BP 138/83; BP 140/84; BP 145/87; PULSE 80; PULSE 84; PULSE 86
--- NOTE | 2023-06-05 16:03 | PC.NURSE ---
Provider came to bedside to evaluate patient regarding dizziness. OK per Dr. Prakash for patient to discharge at this time.
== END 2023-06-05 16:04 | disposition home or self-care (01) | DRG 603 ==
LOC: ANHED 16:35 → ANH3MEDSUR 17:47 → ANH2MED 19:51
PROVIDERS: Internal Medicine; Nurse Practitioner; Admitting Provider Chiropractor; Emergency Provider Emergency Medicine; Visit Provider Surgery
DX: L02.416 Cutaneous abscess of left lower limb (principal); L03.116 Cellulitis of left lower limb; E66.01 Morbid (severe) obesity due to excess calories; Z68.36 Body mass index [BMI] 36.0-36.9, adult
CPT/HCPCS: 36415; 73701; 76882; 80048; 80053; 80202; 83605; 85025; 87040; 87070; 87205; 96365; 96366; 96367; 96372; 96375; 96376; 99285; A9270; G0378; J1644; J2270; J3370; Q9967

== ENCOUNTER 2024-03-18 08:02 | Emergency (ER) | payer BC, SELFPAY ==
[2024-03-18 08:11] VITALS: BP 141/94; PULSE 85; RESP 16; TEMP 37.1; O2SAT 100
--- NOTE | 2024-03-18 08:12 | ED.EAR ---
HPI - Ear Problem General Chief complaint: Ear Stated complaint: Ear Pain Time Seen by Provider: 03/18/24 08:12 Source: patient, RN notes reviewed and old records reviewed Mode of arrival: ambulatory Limitations: no limitations History of Present Illness HPI Narrative: 38-year-old female who presents to [facility] with complaints of 2 weeks duration sinus congestion, runny nose, some scratchy throat, and cough, which has resolved but now has complaints of right ear pain. Patient reports she to had been taking Mucinex for her initial symptoms but last night took ibuprofen and also some DayQuil for her ear discomfort. Patient admits to some continued nasal stuffiness, Complaint: ear pain Location: right ear Severity: moderate Discharge from ear: Reports no Treatment prior to arrival: oral analgesic (Ibuprofen and DayQuil) Related Data Allergies Allergy/AdvReac Type Severity Reaction Status Date / Time No Known Allergies Allergy Verified 03/18/24 08:09 Review of Systems Review of Systems: CONSTITUTIONAL: Denies malaise, chills, sweats, or fever. EYES: Denies visual changes, redness, or discharge. ENT: Reports post nasal rhinorrhea, sinus congestion,no sinus pain, positive for right otalgia and no sore throat. CARDIOVASCULAR: Denies chest pain, palpitations, or edema. RESPIRATORY: Reports no cough.? Denies dyspnea. GASTROINTESTINAL: Denies abdominal pain, nausea, vomiting, diarrhea SKIN: Denies rash or itching. MUSCULOSKELETAL: Denies myalgia. NEUROLOGIC: Denies headache. All systems reviewed & are unremarkable except as noted in HPI and below PMFSH Past Medical History Medical History Elevated BP without diagnosis of hypertension Morbid obesity with BMI of 45.0-49.9, adult hypertension Surgical History Surgical History H/O wisdom tooth extraction History of placement of ear tubes History of tonsillectomy and adenoidectomy Family History Family History Grandparent Cancer Grandparent Diabetes mellitus Heart disease Hypertension Grandparent Breast cancer Social History Social History Social History: She lives with katerina and her 1 year old. She is a lifelong nonsmoker. 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 status full code Smoking status: Never smoker Second hand tobacco smoke exposure: No Alcohol intake: never Substance use: never Substance use type: marijuana Lack of Transportation: No Lack of Food: Never True Current Housing: I Have Housing Concerned About Future Housing: No Difficulty Paying Gas/Electric Bills: No Difficulty Paying for Meds: No Currently Unemployed: No Education: Master's Degree or Higher Difficulty w/ Childcare or Family Care: No Living arrangements: with family Additional living arrangements comments: bhavna and son Occupation/Education: occupation Gender identity (if verbalized by the patient): Female Sexual Orientation (if Verbalized by the Patient): Straight or Heterosexual Spiritual care concerns: No Comments At time of signature, agree with nursing past medical, surgical, social and family history. There is no relevant family history pertinent to the presenting complaint Exam Narrative: GENERAL: Well-appearing, well-nourished, and in no acute distress. HEAD: Normocephalic EYES: PERRLA, conjunctivae clear ENT: Nares clear, turbinates edematous and erythematous, clear discharge. Mucous membranes moist.Right TM red,left TM pearly leon with dull light reflex ; right no tragal tenderness. Oropharynx erythematous without lesions. Tonsils not present and throat without exudate, no drooling, no hoarseness, no trismus, uvula midline.post nasal drainage NECK: [place]
== END 2024-03-18 08:24 | disposition home or self-care (01) ==
PROVIDERS: Emergency Provider Registered Nurse; PCP Emergency Medicine
DX: H66.91 Otitis media, unspecified, right ear (principal); E66.01 Morbid (severe) obesity due to excess calories; Z68.41 Body mass index [BMI] 40.0-44.9, adult
CPT/HCPCS: 99213; G0463

== ENCOUNTER 2025-07-13 09:17 | Emergency (ER) | payer BC, SELFPAY ==
--- NOTE | 2025-07-13 09:20 | ED.BACK ---
HPI - Back Pain/Injury General Chief Complaint: Back Pain/Injury Stated Complaint: BACK/SHOULDER PAIN Time Seen by Provider: 07/13/25 09:19 Source: patient Mode of arrival: ambulatory Limitations: no limitations History of Present Illness HPI Narrative: Pamela is a 40-year-old female patient presenting to the clinic today with complaints of right trapezius muscle pain x2 weeks. She reports 2 weeks ago she went stated a hotel and slept and a bed and developed right trapezius muscle pain. She reports the pain started in her neck into her right trapezius muscle. States that at times pain will go into the shoulder and shoots down her arm. Has used a massager and feels as though that have some made it worse. Denies any weakness in her upper extremities. She denies any chest pain or shortness of breath. Is only with movement. Currently rates her pain a 3/10. Has been taking Aleve, aspirin, and Tylenol for her symptoms. Related Data Allergies Allergy/AdvReac Type Severity Reaction Status Date / Time No Known Allergies Allergy Verified 07/13/25 09:28 Review of Systems Review of Systems: Pertinent positives per HPI. Patient denies any fever, chills, rash, headache, visual changes, dizziness, cough, runny nose, sore throat, shortness of breath, chest pain, palpitations, nausea, vomiting, diarrhea, constipation, abdominal pain, or any urinary issues. [facility] Past Medical History Medical History Elevated BP without diagnosis of hypertension Morbid obesity with BMI of 45.0-49.9, adult hypertension Surgical History Surgical History History of placement of ear tubes H/O wisdom tooth extraction History of tonsillectomy and adenoidectomy Family History Family History Grandparent Cancer Grandparent Diabetes mellitus Heart disease Hypertension Grandparent Breast cancer Social History Social History Social History: She lives with [facility] and her 1 year old. She is a lifelong nonsmoker. 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 status full code Smoking status: Never smoker Second hand tobacco smoke exposure: No Alcohol intake: never Substance use: never Substance use type: marijuana Do You Feel Safe in your Home?: Yes Lack of Transportation: No Lack of Food: Never True Current Housing: I Have Housing Concerned About Future Housing: No Difficulty Paying Gas/Electric Bills: No Difficulty Paying for Meds: No Currently Unemployed: No Education: Master's Degree or Higher Difficulty w/ Childcare or Family Care: No Living arrangements: with family Additional living arrangements comments: fiance and son Occupation/Education: occupation Gender identity (if verbalized by the patient): Female Sexual Orientation (if Verbalized by the Patient): Straight or Heterosexual Spiritual care concerns: No Agree to blood products: Yes Comments At the time of my signature, I reviewed and agree with the nursing past medical, surgical, social, and family history. There is no relevant family history pertinent to the patient complaint. Exam Narrative: General: Well-developed, morbidly obese, in no apparent distress Head: Normocephalic, atraumatic. Cardio: Regular rate and rhythm, s1 and s2 normal, no murmur appreciated. Resp: Clear to auscultation bilaterally, no rhonchi, rales, wheezing or rubs. Musculoskeletal: No deformity, tender to palpation over the posterior lateral cervical musculature and over the trapezius musculature, pain with turning his head to the right against resistance over these cervical/trapezius musculature, grossly normal range of motion, muscle strength strong and equal, peripheral pulse strong, no edema, no cyanosis, normal gait and station Course Course Emergency Course: Portions of this record may have been created with voice recognition software. Level of Care: Express Care Visit Vital Signs Vital signs: Vital signs reviewed MDM - Back Pain/Injury MDM Narrative Medical decision making narrative: At the time of visit patient is resting comfortably on the exam table. Patient appears to be nontoxic. Complaints of right trapezius muscle pain x2 weeks. She reports 2 weeks ago she went stated a hotel and slept and a bed and developed right trapezius muscle pain. She reports the pain started in her neck into her right trapezius muscle. States that at times pain will go into the shoulder and shoots down her arm. Has used a massager and feels as though that have some made it worse. Denies any weakness in her upper extremities. She denies any chest pain or shortness of breath. Is only with movement. Currently rates her pain a 3/10. Has been taking Aleve, aspirin, and Tylenol for her symptoms. On exam patient has tenderness over the right posterior lateral cervical and upper trapezius musculature. Has equal bilateral upper knee strength and strong hand grasp bilaterally. Peripheral pulses palpable and strong. Has full range of motion of upper extremities and mild tenderness over the posterior lateral trapezius musculature when turning her neck to the right against resistance Plan: I suspect patient has a posterior lateral cervical/trapezius muscle strain. Prescription for cyclobenzaprine was sent to the pharmacy. Sedation precautions were reviewed. Supportive measures were discussed with the patient and they voiced understanding discharge instructions and agrees to treatment plan. Return precautions reviewed Differential Diagnosis Differential diagnosis: Likely thoracic back pain, discitis and other (Trapezius muscle strain, torticollis, cervical strain, paresthesia, nerve inflammation) Discharge Plan Discharge Clinical Impression: Strain of cervical portion of right trapezius muscle Patient Disposition: Home Condition: Stable Instructions: Antibiotic Form, Muscle Strain (ED) Additional Instructions: Take any prescription medication only as prescribed-cyclobenzaprine May take Tylenol/ibuprofen as needed for pain as per bottle directions. Be mindful of sedation precautions given to you if taking a muscle relaxer. May use heat or ice to the affected area Consider massage or chiropractor adjustment if this was discussed with provider May use blue emu, lidocaine patches, or asper cream to affected area- do not apply heat or ice directly over cream- can cause burn. Complete appropriate stretching exercises. Follow up with your PCP in 3-5 days if symptom persist. Patient Language: Yemeni Prescriptions: New cyclobenzaprine 10 mg tablet 10 mg PO Q8H PRN (Reason: muscle spasm) 7 Days Qty: 21 0RF Follow-up/Referrals: Cara Liang NP [Primary Care Provider, Internal Medicine] Time of Disposition: 09:34 Quality NIHSS Nursing Documentation ED NIHSS nursing documentation: reviewed/agree
[2025-07-13 09:35] VITALS: BP 139/89; PULSE 82; RESP 16; TEMP 36.4; O2SAT 100
== END 2025-07-13 09:45 | disposition home or self-care (01) ==
PROVIDERS: Emergency Provider Nurse Practitioner Family; PCP Nurse Practitioner
DX: S46.811A Strain of other muscles, fascia and tendons at shoulder and upper arm level, right arm, initial encounter (principal); X58.XXXA Exposure to other specified factors, initial encounter; E66.01 Morbid (severe) obesity due to excess calories; Z68.41 Body mass index [BMI] 40.0-44.9, adult
CPT/HCPCS: 99213; G0463

== ENCOUNTER 2025-07-28 09:08 | Emergency (ER) | payer BC, SELFPAY ==
--- NOTE | 2025-07-28 09:14 | ECG_ITS ---
Test Date: 2025-07-28 09:19:20 Measurements Intervals [place] Rate: 88 P: 10 MA: 145 QRS: 27 QRSD: 86 T: 58 QT: 350 QTc: 426 Interpretive Statements SINUS RHYTHM No previous ECG available for comparison Electronically Signed On 07-28-2025 20:09:24 CDT by Chi Shen M.D.
--- NOTE | 2025-07-28 09:14 | ED.GENADULT ---
HPI - General Adult General Chief complaint: Chest Pain Stated complaint: CHEST TIGHTNESS/FLUTTERING Time Seen by Provider: 07/28/25 09:15 Source: patient, RN notes reviewed and old records reviewed Mode of arrival: ambulatory Limitations: no limitations History of Present Illness HPI narrative: 40-year-old female presents to the [facility] with 2 day history of increasing sternal chest tightness, fluttering, worse at night with associated shortness of breath. Denies fevers. Denies nausea or vomiting. Had a similar episode approximately 1 year ago had a workup done by her primary and states that she was diagnosed with anxiety. Onset (ago): day(s) (2) Treatments prior to arrival: none Related Data Allergies Allergy/AdvReac Type Severity Reaction Status Date / Time No Known Allergies Allergy Verified 07/28/25 09:56 Review of Systems Review of Systems: All systems reviewed & are unremarkable except as noted in HPI and below Constitutional: Constitutional: Reports no additional constitutional complaints ENT: Reports system reviewed and no additional complaints, except as documented Cardiovascular: Cardiovascular: Reports as per HPI, Reports chest pain and Reports dyspnea Respiratory: Respiratory: Reports no additional respiratory complaints, Denies chest congestion, Denies cough and Denies dyspnea Gastrointestinal: Gastrointestinal: Reports no additional gastrointestinal complaints, Denies nausea and Denies vomiting Musculoskeletal: Musculoskeletal: Reports no additional musculoskeletal complaints Integumentary/Breasts: Skin/Breast: Reports system reviewed and no additional complaints, except as docu Psychiatric: Psychiatric: Reports no additional psychiatric complaints PMFSH Past Medical History Medical History Elevated BP without diagnosis of hypertension hypertension Morbid obesity with BMI of 45.0-49.9, adult Surgical History Surgical History History of placement of ear tubes H/O wisdom tooth extraction History of tonsillectomy and adenoidectomy Family History Family History Grandparent Cancer Grandparent Diabetes mellitus Heart disease Hypertension Grandparent Breast cancer Social History Social History Social History: She lives with bambi and her 1 year old. She is a lifelong nonsmoker. 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 status full code Smoking status: Never smoker Second hand tobacco smoke exposure: No Alcohol intake: never Substance use: never Substance use type: marijuana Do You Feel Safe in your Home?: Yes Lack of Transportation: No Lack of Food: Never True Current Housing: I Have Housing Concerned About Future Housing: No Difficulty Paying Gas/Electric Bills: No Difficulty Paying for Meds: No Currently Unemployed: No Education: Master's Degree or Higher Difficulty w/ Childcare or Family Care: No Living arrangements: with family Additional living arrangements comments: fiance and son Occupation/Education: occupation Gender identity (if verbalized by the patient): Female Sexual Orientation (if Verbalized by the Patient): Straight or Heterosexual Spiritual care concerns: No Agree to blood products: Yes Comments At the time of my signature, I reviewed and agree with the nursing past medical, surgical, social, and family history. There is no relevant family history pertinent to the patient complaint. Exam Const: General: cooperative, healthy appearing, comfortable, no acute distress, well developed, alert and well nourished Nutritional Appearance: well nourished and obese Orientation/consciousness: patient oriented x3 Limitations: no limitations HENMT: Head: normal to inspection Ears: hearing grossly normal bilaterally Mouth: Yes Normal oral and palatal mucosa present, Yes lip normal, Yes tongue normal and Yes moist mucous membranes Eyes: General: appearance normal, both eyes and all related structures Alignment and Position: alignment normal Neck: Neck: normal visual inspection, full ROM, no lymphadenopathy and no meningeal signs Chest: Chest palpation & inspection: normal inspection of the chest Resp: Effort & Inspection: normal respiratory effort and able to speak in complete sentences Auscultation: clear to auscultation bilaterally, no crackles, no rales, no rhonchi and no wheezes Cardio: Rate: regular rate Rhythm: regular rhythm Back/Spine/Pelvis: Back: No back tenderness Skin: General skin exam: normal color and no rashes or lesions noted Neuro: General: patient oriented x3, gait normal, moves all extremities and no meningeal signs Cognition (Neuro): normal cognition Speech: normal speech Gait exam (Neuro): Normal gait present Extrem: General: normal to inspection, full ROM, capillary refill normal and normal gait Psych: Appearance: grossly normal and well kempt Mental Status: mental status grossly normal Speech and movement: Normal speech and movement present and Clear speech present Affect: normal affect Attitude: cooperative Course Course Level of Care: Express Care Visit Vital Signs Vital signs: Vital Signs Temperature 98.4 F 07/28/25 09:21 Pulse Rate 96 07/28/25 09:21 Respiratory Rate 16 07/28/25 09:21 Blood Pressure 131/96 H 07/28/25 09:21 Pulse Oximetry 100 07/28/25 09:21 Temperature 98.4 F 07/28/25 09:21 Pulse Rate 96 07/28/25 09:21 Respiratory Rate 16 07/28/25 09:21 Blood Pressure 131/96 H 07/28/25 09:21 Pulse Oximetry 100 07/28/25 09:21 Reviewed Transfer Transfered to: [place] Transportation: Other (POV per patient request) Transfer rationale: Patient with 2 day history of chest tightness with associated shortness of breath, increasing, worse last night Sending for higher level of care Accepting physician: Spoke with Dr. Raffy Campos excepting Medical Decision Making MDM Narrative Medical decision making narrative: Patient sitting in exam room patient presents for 2 days of increasing chest tightness, worse last night. Associated shortness of breath. Sending for higher level of care Transfer instructions reviewed with patient go directly to the ER. Do not eat or drink. Reinforced by RN All questions have been answered, and the patient deny any further questions Some parts of this dictation were generated by voice recognition software and may contain typographical and/or grammatical inaccuracies. Differential Diagnosis Differential Diagnosis: Cardiac event, PE, anxiety, palpitations, electrolyte disturbance Medical Records Medical records reviewed: Yes I reviewed the external patient's medical records. Vital Signs Vital Signs: Vital Signs Temperature 98.4 F 07/28/25 09:21 Pulse Rate 96 07/28/25 09:21 Respiratory Rate 16 07/28/25 09:21 Blood Pressure 131/96 H 07/28/25 09:21 Pulse Oximetry 100 07/28/25 09:21 Temperature 98.4 F 07/28/25 09:21 Pulse Rate 96 07/28/25 09:21 Respiratory Rate 16 07/28/25 09:21 Blood Pressure 131/96 H 07/28/25 09:21 Pulse Oximetry 100 07/28/25 09:21 Reviewed Lab Data Lab results reviewed: Yes I reviewed the patient's lab results. Labs: Reviewed ECG Data EKG #1: Attestation: I personally reviewed and interpreted this ECG as follows: ECG completion date: 07/28/25 ECG completion time: :19 Prior ECG tracings: not available for review Interpretation: Sinus rhythm, ventricular rate of 88, TX interval 145, QRS duration 86. No ST elevation or depression noted. Critical Care Time Critical Care Time Critical Care Time: No Discharge Plan Discharge Clinical Impression: Chest tightness, Shortness of breath Patient Disposition: Acute Care Hospital Condition: Stable Patient Language: Sammarinese Prescriptions: No Action cyclobenzaprine 10 mg tablet 10 mg PO Q8H PRN (Reason: muscle spasm) 7 Days Qty: 21 0RF Follow-up/Referrals: Cara Liang NP [Primary Care Provider, Internal Medicine]
[2025-07-28 09:21] VITALS: BP 131/96; PULSE 96; RESP 16; TEMP 36.9; O2SAT 100
== END 2025-07-28 09:28 | disposition short-term general hospital (02) ==
PROVIDERS: Emergency Provider Nurse Practitioner; PCP Nurse Practitioner
DX: R07.9 Chest pain, unspecified (principal); R06.02 Shortness of breath
CPT/HCPCS: 93005; 99213; G0463

== ENCOUNTER 2025-07-28 09:46 | Emergency (ER) | payer BC, SELFPAY ==
--- OUTSIDE RECORDS SUMMARY | 2009-05-16 08:11 | XMS_ITS | Continuity of Care Document ---
Author Organization [facility] [employer] Address [address] [place] [address] Phone Care Team Providers Care Bridge Teacher Name Role Phone Soila Boss Unavailable Unavailable Advance Directives Directive Yes / No Effective Date File Name No Information Encounters Encounter Description Practice Location Reason(s) For Visit Diagnoses Date Provider Providers Copied on Encounter [facility] [employer], [address], [place], [address], [place] tel:[phone] [facility] No Information Karyn Cm. [address] [address], [place], [place], [id number], [place]. tel:[phone] Family History Family Member Type Diagnosis Age At Onset No Information Payers Payer name Insurance type Covered green party ID Lewis brown(s) Deepali ITS [place] [employer] [place] [id number] Social History Type Description Quantity Date Captured Comments Sex Female Smoking Status No Information Chief Complaint And Reason For Visit No Information Reason For Referral Reason For Referral No Information History Of Present Illness Encounter Date Complaint History Of Prese nt Illness No Information Functional Status Date Functional Assessmen t No Information Instructions Date Instruction Additional Infor mation No Information Assessments Type Assessment Date No Information Patient Care Teams Name Effective Dates (start - stop) Status Members No Information
--- OUTSIDE RECORDS SUMMARY | 2018-04-20 13:59 | XMS_ITS | Continuity of Care Document ---
Author Organization [facility] Address [address] [place] [address] Phone Care Team Providers Care Operating Room Scheduler Name Role Phone Pool Lovett MD Unavailable Unavailable Allergies, Adverse Reactions, Alerts Substance Reaction Status Criticality No Known Allergies Active No Inform ation Procedures Procedure Date Ua Dip Stik/tablt;wo Micro Non 18 Offic/outpt E&m Estab Low-mod 8 Colposcopy; W/bx-cerv &/or End 18 Urin Pg Test Visual Color Comp 18 Init Preven Meds E&m New Pt; Cytopath Cerv/vag Thin Prep; R 18 Init Preven Meds E&m New Pt; Advance Directives Directive Yes / No Effective Date File Name No Information Encounters Encounter Description Practice Location Reason(s) For Visit Diagnoses Date Provider Providers Copied on Encounter [facility], [address], [place], [place], [id number], [place] tel:[phone] MACEY Gordon No Information 8 Rachell Lanza. [facility] [place], [place], [id number] , [place]. tel:[phone] Offic/outpt E&m Estab Low-mod [facility], [address], [place], [place], [id number], [place] tel:[phone] Maya moore (old) recheck/ going over colpo results (chief complaint)p t thinks she has UTI (chief complaint) DysuriaCIN I (cervical intraepithelial neoplasia I) Jan-3 8 Adriana Graham. [address] [place], [address], [place]. tel: [phone] [facility], [address], [place], [place], [id number], [place] tel:[phone] KEOXconomyCeline moore (old) colposcopy (chief complaint)n egative UPT (chief complaint) High risk HPV infection Jan- 8 Adriana Graham. [address] [place], [address], [place]. 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 [address] [place], [address], [place]. tel: [phone] Family History Family Member Type Diagnosis Age At Onset Problem (finding) Family history of breas t cancer 50 Problem (finding) Family history of ovrian cancer maternal great aunt Problem (finding) Family history of colon paterina uncle Problem (finding) Family history of hyper tension Problem (finding) Family history of diabetes mellitus type 2 Problem (finding) No family hist ory of no uterine/cervical/prostate/pancreatic acner Payers Payer name Insurance type Covered alliance party ID Authoriza ticarmen(s) [employer] CI [id number] Social History Type Description Quantity Date Captured Comments Sex Female Smoking Status No Information Sexual Orientation Straight or heterosexual Aug Chief Complaint And Reason For Visit No Information Reason For Referral Reason For Referral No Information Plan Of Treatment Date Type Action Status Referral Ordered: Pathology (tissue specimen) ordered History Of Present Illness Encounter Date Complaint History Of Prese nt Illness recheck/ going over colpo result s cytology n egative, hpv +had colposcopy biopsy results ectocervix cin1 and ecc negreports had a longer menstrual cycle after colpoworried about partner having hpv and healthy diet and lifestyle pt thinks she has UTI reports luis sepulvedaurine darker at timeshaving some stretching at uretherano urgency, frequency, heamturia, fever, chillshydrates well colposcopy negative UPT annual exam Currently pregna nt: no. Last LMP was 02/25/2018. Her menses is regular. Negative for dysmenorrhea and menorrhagia. Negative for: breast discharge, breast lump(s), breast pain and breast self exam. Menopausal symptoms negative for: hot flashes, insomnia, night sweats and vaginal dryness. There are no associated symptoms. Pertinent negatives include anxiety, depression, dyspareunia and vaginal discharge. She does not take calcium. She does not take Vitamin D. She does not take multivitamins. She does not take Folic acid. The patient does not use tobacco. She does drink alcohol. Additional information: 32 yo for annual exam. Not using contraception, would be ok if got . Not UTD on pap. Desires STI screening. . annual exam (comments) ++Menarch e at 11++Cycles regular++LMP 01/25++2-3day period in early december--used 3 tampons and then had period again this past; was stressed at work; had been sexually before++Bleeding for 5-7 days, heavy to light++Breakthrough--no++Postcoital bleeding--yes, only this partner, more aggressive++Last pap smear 2014 wnl++Abnormal pap smear--no++no gardisil++Mammogram--no++Colonoscopy- -no++Sexually active with 1 male partner ++Sexual debut 17++Lifetime partners 10, male, condoms always utnil 2 partner++Hx/o STI--no++pull out Functional Status Date Functional Assessmen t No Information Instructions Date Instruction Fredis lopez --reviewed and given copy of path results--recommended health lifestyle and avoiding stressors--recommended barrier contraception when sexually active w/ new partner, current partner should get yearly check ups--improessed importance of f/u pap in 1 year--all questions answered--will call if ucx + Related to MEDHI I (cervical intraepithelial neoplasia I) Discussed diet and e xerciseDiscussed routine health maintenance--Cervical cancer screening [id number], pap and hpv today--Breast cancer: self breast awareness, clinical breast exams, mammogram starting at age 40--Colon cancer:colonoscopy starting at age 50--Ovarian cancer:yearly pelvic examsDiscussed safe sexual practices, serum and cerical cultures, knows will call with abnormal results onlyDiscussed preconception vaccinations, family history, recommended pnv w/ 800mcg folic acid Related 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
[2025-07-28] VITALS (15 sets, daily range): BP systolic 113–136; BP diastolic 82–90; PULSE 76–94; RESP 8–24; TEMP 36.6; O2SAT 96–100
--- NOTE | ~2025-07-28 | XR_ITS ---
EXAMINATION: XR chest 2V, 07/28/2025 10:21 CDT HISTORY: Chest Pain COMPARISON: No comparisons available. Technique: 2 views obtained. Findings: The lungs are clear, no effusion. No pneumothorax. Heart is normal size. Mediastinal and hilar contours are within normal limits. Bony thorax no acute abnormality. Impression: No acute cardiopulmonary abnormality. Reviewed, dictated and finalized at location P. Impression: No acute cardiopulmonary abnormality.
--- NOTE | 2025-07-28 09:48 | ECG_ITS ---
Test Date: 2025-07-28 10:06:33 Measurements Intervals [place] Rate: 84 P: 62 MD: 146 QRS: 21 QRSD: 84 T: 43 QT: 358 QTc: 425 Interpretive Statements SINUS RHYTHM Compared to ECG 07/28/2025 09:19:20 No significant changes Electronically Signed On 07-28-2025 20:08:39 CDT by Chi Shen M.D.
--- OUTSIDE RECORDS SUMMARY | 2025-07-28 09:50 | XMS_ITS | Clinical Summary ---
Author Organization [facility] Address [address] [place] [address] Care Team Providers Care Chaplain Resident Name Role Phone Unavailable Primary Care Provider Unavailabl e Source Comments [facility],non-owned Affiliates and Associated Physician Practices is amultiple site organization consisting of ambulatory clinics and hospital sitesin [place], [place], [place] and [place]. This disclosure is being madepursuant to the Care Everywhere program and may not contain all information available regarding this patient. 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 Gender Identity Not on file Sexual Orientation Not on file Plan of Treatment Health Maintenance Due Date Last Done Comments LIPID TESTING 1985 MAMMOGRAM 1985 HIV SCREENING 2000 HEPATITIS C SCREENING 06/23/2003 HEPATITIS B VACCINE (1 of 3 - 19+ 3-dose series) 2004 HPV VACCINE (1 - 3-dose SCDM series) 2012 DEPRESSION SCREENING 11/02/2024 COVID-19 VACCINE (1 - 2023-2 5 season) 2025 INFLUENZA VACCINE (#1) 2025 DTAP/TDAP/TD VACCINES (2 - T d or Tdap) 11/09/2029 11/09/2019 ZOSTER VACCINE (1 of 2) 2035 HIB VACCINE Aged Out No longer eligi ble based on patient's age to complete this topic MENINGOCOCCAL (Group B) VACC INE SHARED DECISION-MAKING Aged Out No longer eligibl e based on patient's age to complete this topic MENINGOCOCCAL GROUPS A/C/Y/W VACCINE Aged Out No longer eligible b ased on patient's age to complete this topic PNEUMOCOCCAL VACCINE Aged Out No long er eligible based on patient's age to complete this topic
--- OUTSIDE RECORDS SUMMARY | 2025-07-28 09:50 | XMS_ITS | Clinical Summary ---
Author Organization [facility] Address [address] [place] [phone] Phone Care Team Providers Care Livestock Nutrition Territory Manager Name Role Phone Unavailable Primary Care Provider Unavailabl e Social History Tobacco Use Types Packs/Day Years Used Date Smoking Tobacco: Never Assessed Comments Unknown Sex and Gender Information Value Date Recorded Sex Assigned at Not on file Legal Sex Female 10:33 AM CDT Gender Identity Not on file Sexual Orientation Not on file Plan of Treatment Health Maintenance Due Date Last Done Comments HEPATITIS B VACCINES (1 of 3 - 19+ 3-dose series) 06/03 HPV/Cotest (21-29) 2006 HPV VACCINES (1 - 3-dose SCDM series) 2012 CERVICAL CANCER SCREENING 2015 HPV/Cotest (30-65) 2015 PAP SMEAR 2015 INFLUENZA VACCINE (#1) 2025 BREAST CANCER SCREENING 2025 DTAP/TDAP/TD VACCINES (2 - Td or Tdap) 11/09/2029 Insurance BS BLUE ACCESS/TRUE BLUE PPO MEDICAID [place]
[2025-07-28 10:17] LABS: Hematocrit 44.7 % (37.0-47.0); Hemoglobin 14.8 g/dL (12.0-15.0); Immature Granulocyte Percent A 0.3 % (0-0.5); Lymphocytes Absolute Auto 2.14 K/mm3 (0.9-3.2); Mean Corpuscular HGB Conc 33.1 g/dl (32-36); Mean Corpuscular Hemoglobin 29.4 pg (26-34); Mean Corpuscular Volume 88.9 fl (80-100); Nucleated Red Blood Cells Absolute Auto 0.000 K/mm3 (0.0-0.012); Nucleated Red Blood Cells Perc 0.0 % (0.0-0.2); Platelet Count Result 219 k/mm3 (150-375); Red Blood Count 5.03 M/mm3 (4.2-5.4); White Blood Count 6.4 K/mm3 (4.5-10.0)
[2025-07-28 10:29] LABS: Alanine Aminotransferase 25 U/L (6-35); Albumin Level 4.8 g/dL (3.5-5.1); Alkaline Phosphatase 51 U/L (38-126); Anion Gap 8 mmol/L (4-12); Aspartate Amino Transferase 22 U/L (14-36); Bilirubin,Total 0.7 mg/dL (0.2-1.3); Blood Urea Nitrogen 14 mg/dL (7-17); Calcium 9.5 mg/dL (8.4-10.2); Carbon Dioxide 25 mmol/L (22-30); Chloride 105 mmol/L (98-107); Estimated CRCL calculation 95 ml/min; Estimated Glomerular Filt Rate > 60; Glucose 83 mg/dL (65-110); Lipase 100 U/L (23-300); Potassium 4.1 mmol/L (3.4-5.0); Sodium 138 mmol/L (137-145); Total Protein 8.4 g/dL (6.3-8.2)
[2025-07-28 10:36] LABS: INR 1.0; Prothrombin Time 13.3 Seconds (11.1-14.7)
[2025-07-28 10:37] LABS: Partial Thromboplastin Time 28.0 Seconds (22.3-36.8)
[2025-07-28 10:40] LABS: Troponin I < 0.012 ng/mL (0.000-0.034)
--- NOTE | 2025-07-28 10:43 | ED_ITS ---
HPI - Chest Pain General Chief Complaint: Chest Pain Stated Complaint: chest pain Time Seen by Provider: 07/28/25 10:05 Source: patient Mode of arrival: ambulatory Limitations: no limitations History of Present Illness HPI narrative: This is a 40-year-old female that presents to the emergency department for chest tightness. Ongoing intermittently for last 2 weeks. Reports associated feelings of heart fluttering. Reports has been more persistent over the last couple of days which prompted her to be seen. She was evaluated urgent care and sent to the ER for further management. Reports some shortness of breath. Related Data Allergies Allergy/AdvReac Type Severity Reaction Status Date / Time No Known Allergies Allergy Verified 07/28/25 09:56 Review of Systems 2 Review of Systems: All systems reviewed & are unremarkable except as noted in HPI and below PMFSH Past Medical History Medical History Elevated BP without diagnosis of hypertension hypertension Morbid obesity with BMI of 45.0-49.9, adult Surgical History Surgical History History of placement of ear tubes H/O wisdom tooth extraction History of tonsillectomy and adenoidectomy Family History Family History Grandparent Cancer Grandparent Diabetes mellitus Heart disease Hypertension Grandparent Breast cancer Social History Social History Social History: She lives with bhavna' and her 1 year old. She is a lifelong nonsmoker. 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 status full code Smoking status: Never smoker Second hand tobacco smoke exposure: No Alcohol intake: never Substance use: never Substance use type: marijuana Do You Feel Safe in your Home?: Yes Lack of Transportation: No Lack of Food: Never True Current Housing: I Have Housing Concerned About Future Housing: No Difficulty Paying Gas/Electric Bills: No Difficulty Paying for Meds: No Currently Unemployed: No Education: Master's Degree or Higher Difficulty w/ Childcare or Family Care: No Living arrangements: with family Additional living arrangements comments: fiance and son Occupation/Education: occupation Gender identity (if verbalized by the patient): Female Sexual Orientation (if Verbalized by the Patient): Straight or Heterosexual Spiritual care concerns: No Agree to blood products: Yes Exam 2 Narrative: GENERAL: Well-appearing, well-nourished, and in no acute distress. HEAD: Normocephalic, atraumatic. EYES: EOMI. CHEST: Clear to auscultation. No respiratory distress. No wheezes rales or rhonchi HEART: Regular rate and rhythm. No murmur heard. Normal peripheral pulses. EXTREMITIES: Normal range of motion. No edema. SKIN: Warm, dry, no rash. NEURO: No focal deficits. Alert and oriented x3. PSYCH: Normal mood and affect Course Vital Signs Vital signs: Vital Signs Temperature 97.8 F 07/28/25 09:54 Pulse Rate 89 07/28/25 09:54 Respiratory Rate 16 07/28/25 09:54 Blood Pressure 134/82 07/28/25 09:54 Pulse Oximetry 97 07/28/25 09:54 Temperature 97.8 F 07/28/25 09:54 Pulse Rate 83 07/28/25 12:33 Respiratory Rate 8 L 07/28/25 13:00 Blood Pressure 132/88 07/28/25 12:46 Pulse Oximetry 99 07/28/25 13:00 MDM - Chest Pain Lab Data Attestation: I reviewed the patient's lab results. 07/28/25 10:10 07/28/25 10:10 Labs: Lab Results 07/28/25 07/28/25 Range/Units 10:10 13:34 WBC 6.4 (4.5-10.0) K/mm3 RBC 5.03 (4.2-5.4) M/mm3 Hgb 14.8 (12.0-15.0) g/dL Hct 44.7 (37.0-47.0) % MCV 88.9 (80-100) fl MCH 29.4 (26-34) pg MCHC 33.1 (32-36) g/dl RDW 13.8 (11.5-14.5) % Plt Count 219 (150-375) k/mm3 MPV 10.3 (7.4-10.4) fl Immature Gran % (Auto) 0.3 (0-0.5) % Neut % (Auto) 54.3 (45.5-73.1) % Lymph % (Auto) 33.6 (18.3-44.2) % [place] % (Auto) 9.0 H (2.6-8.5) % Eos % (Auto) 2.0 (0-4.4) % Baso % (Auto) 0.8 (0.2-1.2) % Lymph # (Auto) 2.14 (0.9-3.2) K/mm3 [place] # (Auto) 0.6 (0.1-0.6) K/mm3 Eos # (Auto) 0.1 (0-0.3) K/mm3 Baso # (Auto) 0.1 (0.0-0.1) K/mm3 Abs Immat Gran (auto) 0.02 (0.00-0.031) K/mm3 Absolute Neuts (auto) 3.5 (1.3-6.7) K/mm3 Absolute Nucleated RBC 0.000 (0.0-0.012) K/mm3 Nucleated RBC % 0.0 (0.0-0.2) % PT 13.3 (11.1-14.7) Seconds INR 1.0 APTT 28.0 (22.3-36.8) Seconds D-Dimer 0.34 (<0.48) ug/mL Sodium 138 (137-145) mmol/L Potassium 4.1 (3.4-5.0) mmol/L Chloride 105 (98-107) mmol/L Carbon Dioxide 25 (22-30) mmol/L Anion Gap 8 (4-12) mmol/L BUN 14 (7-17) mg/dL Creatinine 0.88 (0.7-1.0) mg/dL Estim Creat Clear Calc 95 ml/min Estimated GFR > 60 (59 - ) Glucose 83 (65-110) mg/dL Calcium 9.5 (8.4-10.2) mg/dL Total Bilirubin 0.7 (0.2-1.3) mg/dL AST 22 (14-36) U/L ALT 25 (6-35) U/L Alkaline Phosphatase 51 (38-126) U/L Troponin I < 0.012 < 0.012 (0.000-0.034) ng/mL Total Protein 8.4 H (6.3-8.2) g/dL Albumin 4.8 (3.5-5.1) g/dL Lipase 100 (23-300) U/L TSH (Reflex) 1.680 (0.465-4.68) uIU/mL ECG Data EKG #1: ECG completion date: 07/28/25 EKG Interpretation: normal rate, sinus rhythm, no ST changes and normal QT Critical Care Time Critical Care Time Critical Care Time: No Discharge Plan Discharge Clinical Impression: Palpitations Chest pain Qualifiers: Chest pain type: unspecified Qualified Code(s): R07.9 - Chest pain, unspecified Patient Disposition: Home Condition: Stable Instructions: Chest Pain (ED), Heart Palpitations (ED) Additional Instructions: Return to the Emergency Department if you experience worsening chest pain, shortness of breath, you pass out, or any other symptoms that are concerning to you Follow up with your primary care doctor Patient Language: Estonian Prescriptions: No Action cyclobenzaprine 10 mg tablet 10 mg PO Q8H PRN (Reason: muscle spasm) 7 Days Qty: 21 0RF Follow-up/Referrals: Cara Liang NP [Primary Care Provider, Internal Medicine]
--- OUTSIDE RECORDS SUMMARY | 2025-07-28 10:48 | XMS_ITS | Clinical Summary ---
Author Organization [facility] Address [address] [place] [phone] Phone Care Team Providers Care Sample Coordinator Name Role Phone Unavailable Primary Care Provider [...] Insurance BS BLUE ACCESS/TRUE BLUE PPO MEDICAID [place]
--- OUTSIDE RECORDS SUMMARY | 2025-07-28 10:48 | XMS_ITS | Clinical Summary ---
Author Organization [facility] Address [address] [place] [address] Care Team Providers Care Account Service Representative Name Role Phone Unavailable Primary Care Provider Unavailabl e Source Comments [facility],non-owned Affiliates and Associated Physician Practices is amultiple site organization consisting of ambulatory clinics and hospital sitesin [place], [place], [place] and [place]. This disclosure is being madepursuant to the Care Everywhere program and may not contain all information available regarding this patient. Last updated 18.[facility] Allergies No known active allergies Immunizations Immunization Administration Dates Next Due MMR 11/09/2019 TDAP (7yrs+) 11/09/2019 Social History Tobacco Use Types Packs/Day Years Used Date Smoking Tobacco: Never Assessed Comments No Sex and Gender Information Value Date Recorded Sex Assigned at Not on file Legal Sex Female 11:47 AM RN CLINICAL COORDINATOR Gender Identity Not on file Sexual Orientation [...]
[2025-07-28] MEDS: ASPIRIN 81 MG CHEWABLE TABLET 324 MG PO (10:56)
--- NOTE | 2025-07-28 13:14 | ECG_ITS ---
Test Date: 2025-07-28 13:22:05 Measurements Intervals [place] Rate: 81 P: 20 UT: 130 QRS: 24 QRSD: 98 T: 34 QT: 393 QTc: 457 Interpretive Statements SINUS RHYTHM Compared to ECG 07/28/2025 10:06:33 No significant changes Electronically Signed On 07-28-2025 20:05:15 CDT by Chi Shen M.D.
[2025-07-28 13:49] LABS: Thyroid Stimulating Hormone Reflex 1.680 uIU/mL (0.465-4.68)
[2025-07-28 14:04] LABS: Troponin I < 0.012 ng/mL (0.000-0.034)
--- NOTE | 2025-08-07 15:35 | WPDHOLTEREM ---
Holter/Event Monitor Holter/Event Monitor Date of procedure: 07/28/25 Holter/Event Procedure: 3-7 Day Holter Monitor Indications: Palpitations Conclusion: 1. 5 days holter monitor on 07/28/25. 2. Underlying rhythm is sinus rhythm. HR range 61-166 bpm; average HR 92 bpm. HR at 166 bpm was on 08/02/25 at 11:33 am. 3. There are rare premature supraventricular complexes and rare supraventricular couplets. No supraventricular tachycardia. 4. There are rare premature ventricular complexes, rare ventricular couplets, longest ventricular trigeminy is 43 seconds. No ventricular tachycardia. 5. No significant pauses greater than 3 seconds. 6. Patient reports 19 episodes of symptoms of irregular beats, flutering, heart racing, lightheadedness, shortness of breath, chest pain which demonstrate sinus rhythm, HR range 80-116 bpm with 8 episodes with PVC's.
== END 2025-07-28 14:37 | disposition home or self-care (01) ==
PROVIDERS: Student in an Organized Health Care Education/Training Program; Emergency Provider Physician Assistant; PCP Nurse Practitioner
DX: R07.89 Other chest pain (principal); R06.02 Shortness of breath
CPT/HCPCS: 36415; 71046; 80053; 83690; 84443; 84484; 85025; 85380; 85610; 85730; 93005; 93242; 99284; A9270